=== PATIENT | male | born 1955 | race Caucasian/White ===

== ENCOUNTER 2023-12-19 18:04 | Emergency (ER) | payer OTHER, SELFPAY ==
[2023-12-19 18:07] VITALS: BP 109/68
[2023-12-19 18:33] LABS: % Basophils 0.4 % (0-2); % Eosinophils 1.1 % (0-6); % Immature Granulocytes 0.4 % (0-0.5); % Lymphocytes 25.3 % (20.5-51.1); % Monocytes 7.2 % (1.7-9.3); % Neutrophils 65.6 % (42.2-75.2); Absolute Eosinophils 0.1 10^3/uL (0-0.7); Absolute Lymphocytes 2.3 10^3/uL (1.2-3.4); Absolute Monocytes 0.6 10^3/uL (0.1-0.6); Absolute Neutrophils 5.8 10^3/uL (1.4-6.5); Hematocrit 31.8 % (39.0-52.0); Hemoglobin 10.5 g/dL (13.0-18.0); Mean Corpuscular Hgb 25.5 pg (27.0-31.0); Mean Corpuscular Volume 77.4 fL (80.0-94.0); Nucleated Red Blood Cells % 0 % (-); Platelet Count 355 10^3/uL (130-400); Red Blood Cell Count 4.11 10^6/uL (4.70-6.10); Red Cell Dist. Width 16.3 % (11.5-14.5); White Blood Cell Count 8.9 10^3/uL (4.8-10.8)
[2023-12-19 18:44] LABS: APTT 34.6 Sec (23.4-35.0)
[2023-12-19 18:48] LABS: ALT (SGPT) 13 U/L (0-50); AST (SGOT) 16 U/L (17-59); Albumin 3.6 g/dl (3.5-5.0); Alkaline Phosphatase 114 U/L (38-126); Blood Urea Nitrogen 21 mg/dl (9-20); Calcium 9.8 mg/dl (8.4-10.2); Carbon Dioxide 24 mmol/L (22-30); Chloride 100 mmol/L (98-107); Glucose 193 mg/dl (70-99); Potassium 4.9 mmol/L (3.5-5.1); Sodium 134 mmol/L (135-145); Total Bilirubin 0.4 mg/dl (0.2-1.3); Total Protein 6.6 g/dl (6.3-8.2); eGFR > 60.00
[2023-12-19 18:57] LABS: Troponin I < 0.012 ng/ml
== END 2023-12-19 23:40 ==
LOC: EMR 18:04
PROVIDERS: Student in an Organized Health Care Education/Training Program
DX: R07.89 Other chest pain (principal)
CPT/HCPCS: 99281; 71046; 80053; 84484; 85025; 85730; 93005

== ENCOUNTER → 2024-01-24 17:48 | Outpatient (REF) | payer OTHER, SELFPAY | LOC: RCS 17:48 | PROVIDERS: ATTENDING PHYSICIAN Nuclear Medicine Nuclear Cardiology; FAMILY PHYSICIAN Family Medicine | DX: I25.118 Atherosclerotic heart disease of native coronary artery with other forms of angina pectoris (principal); R06.02 Shortness of breath; I49.3 Ventricular premature depolarization; R00.2 Palpitations; R07.9 Chest pain, unspecified | CPT/HCPCS: 93306 ==

== ENCOUNTER → 2024-01-27 06:46 | Outpatient (REF) | payer OTHER, SELFPAY ==
[2024-01-27] MEDS: LEXISCAN 0.4 MG IV (09:05)
[2024-01-27] MEDS: AMINOPHYLLINE 75 MG IV (09:10)
== END ==
LOC: RCS 06:46
PROVIDERS: ATTENDING PHYSICIAN Nuclear Medicine Nuclear Cardiology; FAMILY PHYSICIAN Family Medicine
DX: I25.118 Atherosclerotic heart disease of native coronary artery with other forms of angina pectoris (principal); R06.02 Shortness of breath; I49.3 Ventricular premature depolarization; R00.2 Palpitations; R07.9 Chest pain, unspecified
CPT/HCPCS: 78452; 93017; A9500; J2785

== ENCOUNTER 2024-02-27 11:42 | Inpatient (IN) | payer OTHER, SELFPAY ==
[2024-02-27] VITALS (35 sets, daily range): BP systolic 82–137; BP diastolic 59–102; PULSE 2–159; BMI 27.0
[2024-02-27] MEDS: CARDIZEM 15 MG IV (09:25)
[2024-02-27 09:37] LABS: Venous Blood Gas B.E. -9.8 mmol/L (-4 to +4); Venous Blood Gas HCO3 18.3 mmol/L (22-27); Venous Blood Gas O2 Sat % 89.8 %; Venous Blood Gas pCO2 48 mmHg (35-48); Venous Blood Gas pO2 67 mmHg (30-50)
[2024-02-27 09:38] LABS: % Basophils 0.5 % (0-2); % Eosinophils 0.2 % (0-6); % Immature Granulocytes 0.6 % (0-0.5); % Lymphocytes 13.7 % (20.5-51.1); % Monocytes 3.7 % (1.7-9.3); % Neutrophils 81.3 % (42.2-75.2); Absolute Basophils 0.1 10^3/uL (0-0.2); Absolute Immature Granulocytes 0.1 10^3/uL (0-0.05); Absolute Lymphocytes 2.7 10^3/uL (1.2-3.4); Absolute Monocytes 0.7 10^3/uL (0.1-0.6); Absolute Neutrophils 15.7 10^3/uL (1.4-6.5); Hematocrit 37.3 % (39.0-52.0); Hemoglobin 12.1 g/dL (13.0-18.0); Mean Corp Hgb Conc. 32.4 g/dL (33.0-37.0); Mean Corpuscular Hgb 25.6 pg (27.0-31.0); Mean Corpuscular Volume 78.9 fL (80.0-94.0); Mean Platelet Volume 9.3 fL (7.4-10.4); Nucleated Red Blood Cells % 0 % (-); Platelet Count 417 10^3/uL (130-400); Red Blood Cell Count 4.73 10^6/uL (4.70-6.10); Red Cell Dist. Width 16.4 % (11.5-14.5); White Blood Cell Count 19.3 10^3/uL (4.8-10.8)
--- NOTE | 2024-02-27 09:43 | ED.GENMED ---
History of Present Illness
General
Chief Complaint: Breathing Problem
Time Seen by Provider: 02/27/24 09:14
History of Present Illness
History of Present Illness:
68-year-old male with history of hypertension, CAD status post stenting in 2000, history of lung cancer status post left lung removal presenting to the emergency department for episode of unresponsiveness. Patient arrives by medics. Medics report
when they arrived, patient was agonal. 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 When she came home from [employer] shift superintendent, patient was on the edge of his bed, trying to put his shoes on. He became increasingly short of breath and then became unresponsive.
She opened his mouth to give him some rescue breaths at that time. When medics arrived, they started him on CPAP. Per , denies any recent fever or cough. About 3 weeks ago, was started on isosorbide based patient had been having on and off
chest pain. Also recently had a stress test and echocardiogram. On arrival, patient admits to feeling shortness of breath, however denies any present chest pain. Patient limited historian given clinical condition.
Past History
Past History
ED Past Medical History: Cancer (Lung CA dx December 2019, tumor shrunk with chemo, radiation and immunotherapy, due for f/u CT scan 06/2021), HTN, Hypercholesterolemia, NIDDM and Other (Gi bleeding)
ED Past Surgical History: Cardiac (Angioplasty, Stents)
Social History
Tobacco: Smoker
Alcohol: Occasional
Personal:
Living: with family
Family History
Family History: Diabetes and Hypertension
Phy Exam
Physical Exam
Physical Exam:
General: Moderate respiratory distress
HEENT: protecting airway, on CPAP
Neck: appears supple
CV: Tachycardic, regular rhythm, no evidence of cyanosis
Resp: Increased work of breathing with rhonchorous breath sounds to the right lung field.
Abd: Soft and non-distended, no tenderness to palpation
Extremities: No deformities, no swelling, no erythema
Neuro: alert, no focal neurologic deficit
: deferred
Rectal: deferred
Psych: Normal affect
Skin: Intact
Scores
Heart Failure Risk
Heart Failure Risk Score: Yes
History of Stroke or TIA: No
History of intubation for respiratory distress: No
Heart rate on ED arrival >/= 110: Yes
SaO2 <90% on arrival on room air: Yes
HR >/=110 during 3min walk test (or too ill to perform test): Yes
ECG has acute ischemic changes: Yes
Urea >/=12mmol/L (BUN 33.6mg/dL): No
Serum CO2>/=35mmol/L: Yes
Troponin I or T elevated to SD Level (0.4mg/dL): Yes
NT-proBNP >/=5,000ng/L (5,000pg/ml): No
HF Risk Score: 9
Admission Status: VERY HIGH RISK 89% Consider admission to hospital
Course
Orders/Labs/Results
Orders:
Orders
02/27/24 09:10
Portable Chest Xray [CR Chest Portable - 1 View] Stat
Comment:
Reason For Exam: sob
Reason Study Needs to be Portable: Unable to Transport
02/27/24 09:12
Electrocardiogram (*1) Urgent
Reason for Study: Other
Other Reason for Exam: Respiratory Distress
Cardiac Monitoring- Treatment ONCE
EKG- Treatment ONCE
IV Insert/Care/Rem.- Treatment PRN
O2 Therapy [RESP] Urgent
Titrate/Wean O2 to maintain O2 sat greater than (%): 93
Special Instructions: TO MAINTAIN CONTINUOUS O2 SATS >/= 93%
Pulse Ox/cont/shift [RESP] Urgent
Quantity: 1
Special Instructions: continuous pulse ox
02/27/24 09:20
Complete Blood Count/With Diff Urgent
Comprehensive Metabolic Panel Urgent
Glycohemoglobin (HgbA1c) Urgent
NT-proBNP Urgent
Troponin I Urgent
Venous Blood Gas Urgent
%Oxygen/Room Air: bipap 12/5
02/27/24 09:22
Diltiazem HCl [Cardizem] 15 mg IV NOW STA
02/27/24 09:32
CT Chest Pe Study Urgent
Comment:
Reason For Exam: hypoxic, tachy
02/27/24 09:33
EKG [Electrocardiogram (*1)] Urgent
Reason for Study: Tachycardia
02/27/24 09:34
EKG- Treatment ONCE
02/27/24 09:46
Lactic Acid Q4H
Comment: CANCEL 2nd LACTIC ACID IF 1st LACTIC ACID IS LESS THAN 2
Blood Culture Urgent
ADEOLA Source: Blood/Venous
Specimen Description:
02/27/24 09:47
Furosemide [Lasix] 40 mg IV ONCE ONE
Nitroglycerin Sublingual [Nitrostat (Sublingual)] 0.4 mg SL [id number] PRN
02/27/24 09:48
Nitroglycerin Sublingual [Nitrostat (Sublingual)] 0.4 mg .ROUTE .STK-MED ONE
02/27/24 10:15
Reg Insulin 100 Units/100 ml [Novolin R Insulin Infusion] 100 units in 100 ml IV ORDERED RATE
02/27/24 10:16
Cefepime HCl [Maxipime] 2,000 mg IV NOW STA
02/27/24 10:18
Acetaminophen [Tylenol/Feverall] 650 mg .ROUTE .STK-MED ONE
02/27/24 10:19
Acetaminophen [Tylenol/Feverall] 650 mg RECTAL NOW STA
02/27/24 10:25
COVID-19 Antigen Urgent
Source: Nasal Swab
Urinalysis Reflex To Culture Urgent
Date Specimen was Collected: 02/27/24
Time Specimen was Collected: 10:21
Urine Microscopic Reflex Cult Urgent
Legionella Urinary Antigen Urgent
ADEOLA Source: U
Specimen Description:
Strep pneumoniae Antigen Urgent
ADEOLA Source: U
Specimen Description:
Comment: ADDED FROM PENDING
02/27/24 10:59
Behavioral Health Director Consult Routine
Consulting Provider: Ginna Hendricks
Was physician already notified: Yes
Reason for consult: covid, respiratory distress, sepsis
02/27/24 11:20
Admit/Transfer Patient As Directed
Co-Sign Provider:
Level of Care: Inpatient admission
Assign to:: ICU
Physician / Group: rosmery marcus
Diagnosis: respiratory failure, covid, pulm edema
Reason for Hospitalization: respiratory failure, covid, pulm edema
Expected length of stay greater than two midnights?: Yes
ELOS- Estimated Length of Stay in days: 7
I certify the patient meets the requirements for IP care: Yes
PRN Pain Medication Management As Directed
May give lesser potent ordered pain med per pt: Yes
preference::
Protocol:: Medication orders for pain may be administered in a
manner that supports deferring to patient preference
when the pt is:
- Requesting an ordered lesser potent pain medication.
Least to most potent pain medications are defined
as: acetaminophen < NSAID < tramadol < opioids
(morphine, oxycodone, hydromorphone).
- Requesting a lesser dose of the same medication IF
ORDERED.
- Requesting a less intrusive route of administration
if both routes are prescribed by the provider (PO <
IV).
02/27/24 11:24
Code Status As Directed
Resuscitation Status: Full Code
02/27/24 11:46
Dexamethasone Sod Phosphate [Decadron] 6 mg IV NOW STA
02/27/24 11:50
B-Hydroxybutyrate Urgent
02/27/24 12:28
Acetaminophen [Tylenol/Feverall] 650 mg RECTAL Q4HPRN PRN
Acetaminophen [Tylenol] 650 mg PO Q4HPRN PRN
Albuterol [ProAIR HFA INHALER] 2 puff INH R Q4HPRN PRN
Albuterol [ProAIR HFA INHALER] 6 puff INH R QID
Dextrose 50%-Water [Dextrose 50% Syringe] 12.5 grams IV [id number] PRN
Glucagon [GlucaGen] 1 mg IM PRN PRN
Insulin Aspart Corrective Mod [Novolog Flexpen-Moderate Resistance] See Protocol SC AC
Ondansetron Injectable [Zofran] 4 mg IV Q6HPRN PRN
02/27/24 12:28
Add On- LAB Routine
Tests Added?: HgbA1C to today's lab
CARDIOLOGY CONSULT Routine
Consulting Provider: Toya Butler
Was physician already notified: Yes
Respiratory Culture/Gram Stain Urgent
ADEOLA Source: Sputum
Specimen Description:
Activity As Directed
Activity Level: Out of Bed-Early Mobility
Bedside Glucose Monitoring As Directed
Frequency: Q1H
Intake/ Output As Directed
Frequency: Per unit guidelines
Notify MD As Directed
Notify physician if: Nurse to contact provider when glucose reaches 250 to obtain orders for D5 0.45 NaCl
Vital Signs As Directed
Frequency: Per unit guidelines
Weight As Directed
Frequency: Once
Comment: on admission
Pt Eval And Treat Routine
Activity Level: Out of Bed-Early Mobility
DX Deep Vein Thrombosis Video Routine
02/27/24 13:00
Metoprolol [Lopressor] 75 mg PO BID
02/27/24 14:36
Basic Metabolic Panel Q2
Lactic Acid Q4H
Comment: CANCEL 2nd LACTIC ACID IF 1st LACTIC ACID IS LESS THAN 2
Blood Culture Urgent
ADEOLA Source: Blood/Venous
Specimen Description:
02/27/24 17:48
Basic Metabolic Panel Q2
02/27/24 18:00
Aspirin Low Dose EC [Aspir Low (Enteric Coated)] 81 mg PO QPM
Cefepime HCl [Maxipime] 1,000 mg IV Q8H
Enoxaparin Sodium [Lovenox] 40 mg SC QPM
02/27/24 20:00
Guaifenesin [Mucinex] 600 mg PO Q12
02/28/24 06:11
Complete Blood Count/With Diff IN AM
02/28/24 08:00
Pantoprazole [Protonix] 40 mg PO DAILY
Abnormal Lab Results
02/27/24 02/27/24 02/27/24
09:20 09:46 10:25
WBC 19.3 H 10^3/uL
(4.8-10.8)
Hgb 12.1 L g/dL
(13.0-18.0)
Hct 37.3 L %
(39.0-52.0)
MCV 78.9 L fL
(80.0-94.0)
MCH 25.6 L pg
(27.0-31.0)
MCHC 32.4 L g/dL
(33.0-37.0)
RDW 16.4 H %
(11.5-14.5)
Plt Count 417 H 10^3/uL
(130-400)
Abs Immat Gran (auto) 0.1 H 10^3/uL
(0-0.05)
Absolute Neuts (auto) 15.7 H 10^3/uL
(1.4-6.5)
Absolute Monos (auto) 0.7 H 10^3/uL
(0.1-0.6)
Immature Gran % 0.6 H %
(0-0.5)
Neutrophils % 81.3 H %
(42.2-75.2)
Lymphocytes % 13.7 L %
(20.5-51.1)
VBG pH 7.19 L*
(7.32-7.43)
VBG pO2 67 H mmHg
(30-50)
VBG HCO3 18.3 L mmol/L
(22-27)
Sodium 134 L mmol/L
(135-145)
Carbon Dioxide 20 L mmol/L
(22-30)
Glucose 428 H mg/dl
(70-99)
Hemoglobin A1c 7.2 H %
(4.0-5.6)
Lactic Acid 4.1 H* mmol/L
(0.7-2.0)
Alkaline Phosphatase 140 H U/L
(38-126)
Troponin I 0.039 H* ng/ml
Urine Ketones 1+ A
(Negative)
Ur Occult Blood Reflex Trace A
(Negative)
Urine RBC 3-6 A /HPF
(0-2)
Urine Glucose 1+ A
(Negative)
Urine Albumin (Reflex) 1+ A
(Neg - Trace)
SARS-CoV-2 Antigen Positive A
(Negative)
POC Glucose
24 02/27/24
10:31 11:38
WBC
Hgb
Hct
MCV
MCH
MCHC
RDW
Plt Count
Abs Immat Gran (auto)
Absolute Neuts (auto)
Absolute Monos (auto)
Immature Gran %
Neutrophils %
Lymphocytes %
VBG pH
VBG pO2
VBG HCO3
Sodium
Carbon Dioxide
Glucose
Hemoglobin A1c
Lactic Acid
Alkaline Phosphatase
Troponin I
Urine Ketones
Ur Occult Blood Reflex
Urine RBC
Urine Glucose
Urine Albumin (Reflex)
SARS-CoV-2 Antigen
POC Glucose 420 H mg/dl 411 H mg/dl
(70-99) (70-99)
02/27/24 09:20
02/27/24 09:20
Vital Signs
Initial and Last Documented VS:
Initial Vital Signs
Pulse Resp BP Pulse Ox
160 40 137/75 96
02/27/24 09:10 02/27/24 09:10 02/27/24 09:10 02/27/24 09:10
Last Documented Vital Signs
Temp Pulse Resp BP Pulse Ox
98.2 F 91 21 99/63 97
02/28/24 11:45 02/28/24 15:00 02/28/24 15:00 02/28/24 15:00 02/28/24 15:00
MDM/Problems Addressed
MDM/Problems Addressed:
68-year-old male with history of hypertension, hyperlipidemia, CAD status post stenting, history of lung cancer status post left lung removal presenting for unresponsive episode and respiratory distress. Vital signs on arrival significant for
tachycardia, arrives on CPAP secondary to prehospital hypoxia.
On exam, patient in moderate to severe respiratory distress with increased work of breathing. Patient initially with decreased fuzziness, however became more responsive upon arrival, particularly with at bedside. Patient able to answer
questions, denies chest pain. Rhonchorous breath sounds to the right lung field. Concern for flash pulmonary edema versus infectious pathology such as pneumonia. In the setting of tachycardia and hypoxia, PE is also a consideration. Patient
however at this time is too unstable for CT of the chest. Respiratory at bedside upon patient's arrival, transition to BiPAP. Did have conversation with patient and , patient full code at this time. Will maintain him up at this time, however
we will proceed to intubation if necessary if clinical picture does not improve.
09:50 - Diltiazem administered for tachycardia, slightly improved, remains sinus. Initial ST depressions have improved with rate improvement. Without concern for SD. However, on review of EMR, patient recently had nuclear stress test completed on
01/26, which did show anterior, apical, inferior defect. Patient with known coronary artery disease. Chest x-ray consistent with moderate acute interstitial and alveolar cardiogenic pulmonary edema. At this time concern for flash pulmonary edema.
Will maintain on BiPAP, administer sublingual nitro given labile blood pressure, as well as Lasix. Labs thus far significant for leukocytosis. Blood culture and lactic acid ordered. However, denies any cough or recent fever, or additional
infectious symptoms
10:00-patient with a metabolic acidosis. Labs significant for hyperglycemia with an anion gap. At this time concern for concomitant DKA. Holding IV fluids given pulmonary edema. Will start insulin drip. Patient does have elevated troponin,
suspected secondary to ischemic demand from presenting tachycardia. Patient will require ICU admission. Will discuss with hospitalist.
10:15 -nurse obtain rectal temperature, febrile. In the setting of leukocytosis, elevated lactic acid, fever, will start broad-spectrum antibiotics. Again holding IV fluids given pulmonary edema and respiratory status. Will give rectal Tylenol
*EKG
Interpreted by ED Provider?: Yes
EKG Intrepretation Date: 02/27/24
EKG Intrepretation Time: 09:46
Interpretation: abnormal
Comparison EKG: changes noted
Heart Rate: 160
Rate: tachycardiac
Rhythm: sinus
Pax: left axis deviation
Interval: normal interval
Ischemia: other (ST depressions laterally with minimal ST elevation anteriorly, suspected right dependent)
*Critical Care Note
Total Time (30-74mins, 75-104mins- exclusive of procedures): 80
comment:
The high probability of a clinically significant, sudden or life threatening deterioration of the cardiopulmonary system(s) required my full and direct attention, intervention and personal management. The aggregate critical care time was 60 minutes.
This time is in addition to time spent performing reported procedures but includes the following:
[x] Data Review and interpretation
[x] Patient assessment and monitoring of vital signs
[x] Documentation
[x] Medication orders and management
ED Attending Note
-
Portions of this chart may have been created with voice recognition software.� Occasional wrong word or��sound alike� substitutions may have occurred due to the inherent limitations of voice recognition software.
Discharge Plan
Departure
Patient Disposition: Admit
Date of Disposition: 02/27/24
Time of Disposition: 10:31
Presentation/result/management discussed w/ accepting MD/DO: Hospitalist
Patient with high blood pressure during this ER visit?: No
Condition: Critical
Discharge Problem:
Respiratory failure with hypoxia, DKA (diabetic ketoacidosis), Sepsis, Pulmonary edema
Interventions
Interventions:
*Risk Screen - Suicide Last Done: 02/27/24 09:35
*General Assessment Last Done: 02/27/24 12:39
*Neglect/Abuse Screening Last Done: 02/27/24 09:35
ED- Fall Risk Assessment Last Done: 02/27/24 12:39
*ED COVID-19 Vaccine History Last Done: 02/27/24 12:39
*Nursing Disposition Last Done: 02/27/24 12:39
ED- Cardiac Assessment Last Done: 02/27/24 09:19
ED- Pulmonary Assessment Last Done: 02/27/24 09:20
Discharge Date and Time
Discharge Date/Time: 02/27/24 12:41
[2024-02-27 09:44] LABS: Venous Blood Gas pH 7.19 (7.32-7.43)
[2024-02-27 09:46] LABS: ALT (SGPT) 17 U/L (0-50); AST (SGOT) 22 U/L (17-59); Alkaline Phosphatase 140 U/L (38-126); Blood Urea Nitrogen 18 mg/dl (9-20); Calcium 9.5 mg/dl (8.4-10.2); Carbon Dioxide 20 mmol/L (22-30); Chloride 100 mmol/L (98-107); Glucose 428 mg/dl (70-99); Potassium 4.7 mmol/L (3.5-5.1); Sodium 134 mmol/L (135-145); Total Bilirubin 0.5 mg/dl (0.2-1.3); Total Protein 6.7 g/dl (6.3-8.2); eGFR > 60.00
[2024-02-27] MEDS: NITROSTAT (SUBLINGUAL) 0.4 MG SL ×2 (09:49→10:02)
[2024-02-27] MEDS: LASIX 40 MG IV (09:57)
[2024-02-27 10:01] LABS: NT-proBNP 1620 pg/ml; Troponin I 0.039 ng/ml
[2024-02-27 10:11] LABS: Lactic Acid 4.1 mmol/L (0.7-2.0)
[2024-02-27] MEDS: TYLENOL/FEVERALL 650 MG RECTAL (10:19)
[2024-02-27 10:33] LABS: Glucose - Point of Care 420 mg/dl (70-99)
[2024-02-27] MEDS: NOVOLIN R INSULIN INFUSION 100 IV (10:33)
[2024-02-27] MEDS: MAXIPIME 2000 MG IV (10:41)
[2024-02-27 10:43] LABS: COVID-19 Antigen Positive (Negative); Urine Albumin 1+ (Neg - Trace); Urine Bilirubin Negative (Negative); Urine Character Clear (Clear); Urine Color Yellow; Urine Glucose 1+ (Negative); Urine Ketone 1+ (Negative); Urine Leukocyte Negative (Negative); Urine Nitrite Negative (Negative); Urine Occult Blood Trace (Negative); Urine Specific Gravity 1.025 (<1.030); Urine Urobilinogen Negative (Neg - 1+)
--- NOTE | 2024-02-27 11:00 | HPS.HSE ---
Family Physician
-
Family Physician: Eduardo Guzman
Chief Complaint
-
Shortness of breath, unresponsiveness
History of Present Illness
68-year-old male with a past medical history of lung cancer status post left pneumonectomy, CAD, HTN, HL, PVD, COPD, and DM2 presents with acute onset of shortness of breath with unresponsiveness this morning. Patient's came home from work,
and found him short of breath and unresponsive. She opened his mouth, and gave him rescue breaths. Medics found him agonal breathing, and placed him on CPAP. denies any sick contacts. She denies him having nausea, vomiting, or diarrhea.
She does report that he is weak. Patient was found to be COVID-positive, febrile, and tachycardic. He has had all his COVID vaccinations.
Medical History
Past Medical History
Past Medical History: Reports Other
Additional Past Medical History:
Coronary artery disease PCI 2000 in [place]
PVD
Hypertension
Hyperlipidemia
COPD
Lung cancer s/p Left pneumonectomy 2021, chemo/XRT/Immunotherapy ([place])
Type 2 diabetes
GERD
GIB
Past Surgical History: Reports Other
Additional Past Surgical History:
Left pneumonectomy
Social History
Tobacco: Former Smoker
Alcohol: Occasional
Drug: None
Personal:
Living: With Family
Family History
Family History: Not pertinent
Allergies / Home Medications
Allergies reflects when Allergies were last updated in [facility].
Home Medications with original date entered in [facility]
Allergy/Medication List:
Allergies
Allergy/AdvReac Type Severity Reaction Status Date / Time
atorvastatin Allergy Rash Verified 12/19/23 18:07
Home Medications Table - record
�Medication �Instructions �Recorded �Confirmed
fluvastatin 80 mg tablet,extended 80 mg PO DAILY High Cholesterol 06/17/13 02/27/24
release 24 hr (Lescol XL)
aspirin 81 mg tablet,delayed 81 mg PO QPM Blood Clot 02/07/23 02/27/24
release Prevention/Tx
cholecalciferol (vitamin D3) 25 25 mcg PO QPM Supplement 02/07/23 02/27/24
mcg (1,000 unit) capsule (Vitamin
D3)
glimepiride 4 mg tablet 4 mg PO BID Diabetes 02/07/23 02/27/24
lisinopril 10 mg tablet 5 mg PO DAILY Blood Pressure 02/07/23 02/27/24
metoprolol tartrate 75 mg tablet 75 mg PO BID Heart 02/07/23 02/27/24
Disease/Condition
silodosin 8 mg capsule 8 mg PO DAILY Urinary Issue 02/07/23 02/27/24
sitagliptin phosphate 100 mg 100 mg PO DAILY Diabetes 02/07/23 02/27/24
tablet (Januvia)
isosorbide mononitrate 30 mg 30 mg PO DAILY Heart 02/27/24 02/27/24
tablet,extended release 24 hr Disease/Condition
metformin 1,000 mg tablet 1,000 mg PO BID Diabetes 02/27/24 02/27/24
pantoprazole 40 mg tablet,delayed 40 mg PO DAILY Gastrointestinal 02/27/24 02/27/24
release (Protonix) Issue
Review of Systems
-
Unable to obtain full review of systems at this time due to: Acuity
A 12 point ROS was completed and negative except as noted: No
Physical Exam
Vital Signs
Vital Signs
Temp Pulse Resp BP Pulse Ox
102.8 F H 148 32 126/70 99
02/27/24 10:16 02/27/24 10:00 02/27/24 10:00 02/27/24 10:07 02/27/24 09:57
Physical Exam
General: Respiratory Distress
HEENT: NormoCephalic, Anicteric and Moist mucous membranes
Respiratory: Rhonchi
Cardiac: Tachycardia
GI: Soft, Non Tender, Non Distended and Normal Bowel Sounds
Musculoskeletal: No Clubbing, Edema, Left Lower Extremity and Edema, Right Lower Extremity
Neuro: Other (Lethargic, somnolent)
Laboratory Results
-
02/27/24 09:20
02/27/24 09:20
Laboratory Results
Lactic Acid 4.1 mmol/L (0.7-2.0) H* 02/27/24 09:46
Total Bilirubin 0.5 mg/dl (0.2-1.3) 02/27/24 09:20
AST 22 U/L (17-59) 02/27/24 09:20
ALT 17 U/L (0-50) 02/27/24 09:20
Alkaline Phosphatase 140 U/L (38-126) H 02/27/24 09:20
Troponin I 0.039 ng/ml H* 02/27/24 09:20
Impression/Plan
-
HPI: 68-year-old male with a past medical history of lung cancer status post left pneumonectomy, CAD, HTN, HL, PVD, COPD, and DM2 presents with acute onset of shortness of breath with unresponsiveness this morning. Patient's came home from
work, and found him short of breath and unresponsive. She opened his mouth, and gave him rescue breaths. Medics found him agonal breathing, and placed him on CPAP. denies any sick contacts. She denies him having nausea, vomiting, or
diarrhea. She does report that he is weak. Patient was found to be COVID-positive, febrile, and tachycardic. He has had all his COVID vaccinations.
#Sepsis
#Acute coronavirus pneumonia
#Concern for bacterial pneumonia
Admit to ICU, continue vancomycin and cefepime
Start dexamethasone day 1, bronchodilators
Consult ID for remdesivir
#Flash pulmonary edema
Status post Lasix 40 mg IV in the ED
Consult cardiology, check echo
#Acute hypoxic respiratory failure
Due to the above, wean oxygen as tolerated
#Diabetic ketoacidosis
Consult laboratory secretary
Insulin drip, Accu-Cheks every hour's, BMP
#Sinus tachycardia
Status post Cardizem in the ED
Continue oral metoprolol, treat underlying conditions as above
#Hypotension
Hold Imdur, lisinopril
#Type 2 diabetes
Hold glimepiride, Januvia, metformin
#Gastroesophageal reflux disease
Continue PPI
#Hyponatremia
Mild, monitor
DVT prophylaxis�subcu Lovenox
Full code
Updated at bedside 02/26
Total time spent to see the patient on the floor, examine the patient, review data and lab results, discuss treatment plan with patient, nursing staff around 78 minutes.
[2024-02-27 11:50] LABS: Glucose - Point of Care 411 mg/dl (70-99)
[2024-02-27 11:51] LABS: Urine Hyaline Cast >15 /LPF (0-2); Urine Mucus Many
[2024-02-27] MEDS: DECADRON 6 MG IV (11:56)
--- NOTE | 2024-02-27 12:01 | CON.CAR ---
Addendum entered and electronically signed by Toya Butler MD 02/27/24 16:16:
I saw and examined the patient.
The Pss Delivery Professional's note was reviewed and I agree with the note.
Comment: Patient is critically ill at the current time. He presents with weakness and acute respiratory failure in the setting of being COVID-positive. He is febrile to 102.8. He has both lactic acidosis and possibly early DKA. White blood count
is elevated. He has prior history of lung cancer status postpneumonectomy and chemotherapy 2021. Currently he is conversant. His is at the bedside and answers many questions. She tells me he was very weak and hypoxic today when she got home
from work. CT imaging interpreted as moderate acute interstitial edema in the right lung. EKG now tachycardic but improved.
Most recent cardiac testing noted with Lexiscan nuclear stress test being abnormal 01/27/2024 with large size moderate partially reversible anterior, apical and inferior defect. This suggested coronary disease. After discussion with patient and his
patient had requested conservative management.
Echocardiogram 01/24/2024 with normal LV function and no significant valve disease.
He is currently hypotensive.
Plan:
-Mild troponin elevation. Trend troponins and follow EKG. No chest pain noted.
-Hypotension noted volume resuscitate and follow blood pressure
-Treat COVID/COVID-pneumonia(Remdesivir and antibiotics/steroids); managed by infectious disease, legal administrator and primary service
-If no improvement or significant rise in troponin consider limited echo. Given recent abnormal stress test.
-Continue beta-jeffery and aspirin. Beta-jeffery has helped sinus tachycardia as has volume resuscitation.
-As an outpatient he is on fluvastatin (rash with atorvastatin). Will check outpatient record and perhaps start Crestor 20 g daily.
-Treat early DKA
-Continue supportive pulmonary care
-Cancer history noted
Original Note:
Consultation
Consultation Request
Date/Time Consultation Requested: 02/27/2024
Date/Time Consultation Performed: 02/27/2024
Requesting Provider: Dr. Alvares
Performing Provider: Maria D Matute PA-C for Dr. Toya Butler
Reason for Consultation: Shortness of breath, pulmonary edema
Medical History
-
History of Present Illness:
Patient is a 68-year-old South African speaking male with past medical history significant for coronary artery disease with remote PCI in 2000 in [place], nonobstructive PVD, hypertension, hyperlipidemia, type 2 diabetes, former tobacco abuse with COPD
and lung cancer status past left pneumonectomy 2021 with chemo/immunotherapy and radiation who presents 02/27/2024 to emergency department via EMS with an episode of shortness of breath followed by unresponsiveness. Episode was witnessed by his
. Patient was placed on BiPAP by EMS. On presentation to emergency department he was noted to have a fever of 102.8. White count 19.3, lactic acid 4.1. Chest x-ray showed acute interstitial pulmonary edema in the right lung. Chest CTA
confirmed moderate interstitial pulmonary edema with small right pleural effusion, small pericardial effusion and severe calcified atherosclerotic plaque in coronary arteries and thoracic aorta. There was mild mediastinal and right hilar
lymphadenopathy. proBNP 1620. Patient was provided 40 mg IV Lasix. Initial EKG showing tachycardia and was provided IV diltiazem bolus. Repeat EKG sinus tachycardia. Initial troponin 0.039. proBNP 1620. Patient COVID-positive. Started on
empiric IV antibiotics and IV steroids. Patient also noted to have metabolic acidosis with hyperglycemia and anion gap concerning for possible DKA.
Of note patient was seen by Dr. Ornelas in outpatient cardiology office in December 2023 with complaints of intermittent chest pain. He underwent outpatient echocardiogram in January 2024 which showed preserved ejection fraction and no significant valvular
disease. He also had a Lexiscan nuclear stress test which showed moderate partial reversible anterior, apical and inferior defect suggestive of coronary artery disease. There was ongoing discussion with patient regarding proceeding with cardiac
catheterization however patient decided against undergoing any procedure and Imdur 30 mg was added.
History is provided by patient's as patient is primarily South African speaking and has some altered mental status/lethargy.
PMH:
Coronary artery disease PCI 2000 in [place]
PVD
Hypertension
Hyperlipidemia
COPD
Lung cancer s/p Left pneumonectomy 2021, chemo/XRT/Immunotherapy ([place])
Type 2 diabetes
Past Medical History
Past Medical History: Other (See HPI)
Past Surgical History: Cardiac (Remote PCI in 2000 in [place]) and Other (Lung cancer status post pneumonectomy 2021)
Social History
Tobacco: Former Smoker
Alcohol: Occasional
Drug: None
Personal:
Living: With Family
Family History
Family History: Diabetes and Hypertension
Allergies / Home Medications
Allergy/AdvReac Type Severity Reaction Status Date / Time
atorvastatin Allergy Rash Verified 12/19/23 18:07
�Medication �Instructions �Recorded �Confirmed �Type
fluvastatin 80 mg tablet,extended 80 mg PO DAILY 06/17/13 02/27/24 History
release 24 hr (Lescol XL)
metformin 1,000 mg tablet 1,000 mg PO BID ##0 06/19/13 02/27/24 Rx
aspirin 81 mg tablet,delayed 81 mg PO QPM 02/07/23 02/27/24 History
release
cholecalciferol (vitamin D3) 25 25 mcg PO QPM 02/07/23 02/27/24 History
mcg (1,000 unit) capsule (Vitamin
D3)
glimepiride 4 mg tablet 4 mg PO BID 02/07/23 02/27/24 History
lisinopril 10 mg tablet 5 mg PO DAILY 02/07/23 02/27/24 History
metoprolol tartrate 75 mg tablet 75 mg PO BID 02/07/23 02/27/24 History
silodosin 8 mg capsule 8 mg PO DAILY 02/07/23 02/27/24 History
sitagliptin phosphate 100 mg 100 mg PO DAILY 02/07/23 02/27/24 History
tablet (Januvia)
isosorbide mononitrate 30 mg 30 mg PO DAILY 02/27/24 02/27/24 History
tablet,extended release 24 hr
pantoprazole 40 mg tablet,delayed 40 mg PO DAILY 02/27/24 02/27/24 History
release (Protonix)
Review of Systems
-
History Source: Family, Transfer Record and Coordinating Provider
Physical Exam
Vital Signs
Temp Pulse Resp BP Pulse Ox
102.8 F H 148 32 126/70 99
02/27/24 10:16 02/27/24 10:00 02/27/24 10:00 02/27/24 10:07 02/27/24 09:57
GEN:Lethargic, wearing high flow oxygen
HEENT: supple, anicteric, mmm
LUNGS: Coarse BS/Rhonchi noted anteriorly on right; wearing high flow oxygen
CV: Reg, tachycardic, S1/S2, no murmur
ABD: soft, BS+, NT/ND
EXT: No edema, clubbing or cyanosis
NEURO: lethargic, opens eyes on command
SKIN: No rash, warm, dry
Lab Results
02/27/24 09:20
Troponin I 0.039 ng/ml H* 02/27/24 09:20
Qyk-C-Lhapgvsoilu Pept 1620 pg/ml 02/27/24 09:20
Impression / Plan
-
PCP: Eduardo Fofana
Hand Sewer: Jayson Ornelas
Impression:
Presented 02/27/2024 with acute shortness of breath followed by period of unresponsiveness
Acute hypoxic respiratory failure secondary to COVID-19
Febrile
Leukocytosis
Flash pulmonary edema
Tachycardia
Acute heart failure with preserved ejection fraction, proBNP 1620
Metabolic acidosis with anion gap
DKA
Coronary artery disease PCI 2000 in [place]
PVD
Hypertension
Hyperlipidemia
COPD
Lung cancer s/p Left pneumonectomy 2021, chemo/XRT/Immunotherapy ([place]/[facility])
Type 2 diabetes
ECHO 01/24/2024: EF 55 to 60%. No significant valvular disease
Echo August 2021: EF 60% with no significant valvular disease
Lexiscan nuclear stress test 01/27/2024: Large in size, moderate in severity partially reversible anterior, apical and inferior defect. Defect does not get better with proning suggesting coronary artery disease. EF 50%
Lexiscan stress test August 2021: Normal perfusion with a EF 68%
Plan:
-Presented 02/27/2024 with acute shortness of breath followed by period of unresponsiveness requiring BiPAP by EMS noted to have flash pulmonary edema on chest x-ray/CT of chest
-COVID-19 positive 02/27/2024. Started on IV steroids. Pulmonary consulted
-Leukocytosis and fever Tmax 102.8 in ED. Continue IV antibiotics with Vanco and cefepime
-Continue IV diuresis with Lasix. Given 40 mg in emergency department monitor and assess response. Patient not on diuretic as outpatient.
-Concern for DKA with metabolic acidosis, anion gap and hyperglycemia with blood sugar greater than 400. Management per primary service/legal administrator - on insulin gtt
-Abnormal troponin, initial 0.039. Continue to monitor and trend to peak.
-Tachycardic likely due to present illnesses noted above. Continue to monitor and trend heart rates for now.
-Known coronary artery disease with prior remote PCI in [place] in 2000. Patient recently had complained of intermittent chest pain as outpatient and underwent a Lexiscan nuclear stress test which was abnormal with moderate partial reversible defect
in anterior, apical and inferior defect suggestive of coronary artery disease. Patient declined intervention and opted for medical management with Imdur. CTA of chest demonstrates severe calcified atherosclerotic plaque in coronary arteries. May
need to consider further ischemic work-up once patient is more stable
-Continue ASA. Eventual resumption of Imdur, beta-jeffery, YAO-I and statin once more stable
Discussed with , nursing at bedside
HPI 02/27/2024:
Patient is a 68-year-old [place] African speaking male with past medical history significant for coronary artery disease with remote PCI in 2000 in [place], nonobstructive PVD, hypertension, hyperlipidemia, type 2 diabetes, former tobacco abuse with COPD
and lung cancer status past left pneumonectomy 2021 with chemo/immunotherapy and radiation who presents 02/27/2024 to emergency department via EMS with an episode of shortness of breath followed by unresponsiveness. Episode was witnessed by his
. Patient was placed on BiPAP by EMS. On presentation to emergency department he was noted to have a fever of 102.8. White count 19.3, lactic acid 4.1. Chest x-ray showed acute interstitial pulmonary edema in the right lung. Chest CTA
confirmed moderate interstitial pulmonary edema with small right pleural effusion, small pericardial effusion and severe calcified atherosclerotic plaque in coronary arteries and thoracic aorta. There was mild mediastinal and right hilar
lymphadenopathy. proBNP 1620. Patient was provided 40 mg IV Lasix. Initial EKG showing tachycardia and was provided IV diltiazem bolus. Repeat EKG sinus tachycardia. Initial troponin 0.039. proBNP 1620. Patient COVID-positive. Started on
empiric IV antibiotics and IV steroids. Patient also noted to have metabolic acidosis with hyperglycemia and anion gap concerning for possible DKA.
Of note patient was seen by Dr. Ornelas in outpatient cardiology office in December 2023 with complaints of intermittent chest pain. He underwent outpatient echocardiogram in January 2024 which showed preserved ejection fraction and no significant valvular
disease. He also had a Lexiscan nuclear stress test which showed moderate partial reversible anterior, apical and inferior defect suggestive of coronary artery disease. There was ongoing discussion with patient regarding proceeding with cardiac
catheterization however patient decided against undergoing any procedure and Imdur 30 mg was added.
History is provided by patient's as patient is primarily South African speaking and has some altered mental status/lethargy.
Data Reviewed
-
EKG: Report Reviewed by me, Discussed with Physician, Discussed with Nurse and Discussed with Family
Radiology: Report Reviewed by me, Discussed with Physician, Discussed with Nurse and Discussed with Family
CT Scan: Report Reviewed by me, Discussed with Physician, Discussed with Nurse and Discussed with Family
Labs: Labs Reviewed by me, Discussed with Physician, Discussed with Nurse and Discussed with Family
Old Records: Reviewed
[2024-02-27 12:05] LABS: Urine White Cell 0-2 /HPF (0-5)
[2024-02-27 12:14] LABS: Glucose 389 mg/dl (70-99)
[2024-02-27 12:21] LABS: B-Hydroxybutyrate 2.47 mmol/L (0.02-0.27)
--- NOTE | 2024-02-27 12:59 | CON.INTV ---
Consultation
Consultation Request
Date/Time Consultation Requested: 02/27/24
Date/Time Consultation Performed: 02/27/24
Performing Provider: Ruthie
Reason for Consultation: ICU
Medical History
-
History of Present Illness:
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
progressive shortness of breath. On arrival he was notably febrile, COVID-positive. had called 911 after patient appeared to be apneic, she gave gywdm-ci-wvmvy resuscitation at home. She notes that his O2 dropped to below 50% prior to EMS
arrival. He is now currently on high flow nasal cannula.
He has been following with [facility] for his history of lung cancer. His initial lung mass was demonstrating progressive enlargement. On 08/06/2021 he underwent bronchoscopy with EBUS indicating path consistent with squamous cell carcinoma, 4R and
right hilar lymph node were negative for local metastases. He had been on durvalumab since 06/06/2020.
Initial plan was to do local resection at left lower lobe, but according to his mass abutted against aorta and required massive dissection which ultimately resulted in complete pneumonectomy. He had been doing well supposedly following his
surgery and surveillance scans were stable. He did not require oxygen postoperatively.
She does note he has generally sedentary lifestyle, is not very active since his surgery. He had not received any further treatment postop as well.
On arrival to ER, he has metabolic acidosis with elevated lactate, hyperglycemia for which she is placed on insulin drip.
He is admitted to ICU.
Past Medical History
Past Medical History: Other (see list below)
Social History
Tobacco: Former Smoker
Alcohol: None
Drug: None
Family History
Family History: Reviewed & Not Pertinent
Allergies / Home Medications
Allergies
Allergy/AdvReac Type Severity Reaction Status Date / Time
atorvastatin Allergy Rash Verified 12/19/23 18:07
Home Medications
�Medication �Instructions �Recorded �Confirmed �Last Taken �Type
fluvastatin 80 mg tablet,extended 80 mg PO DAILY 06/17/13 02/27/24 02/26/24 History
release 24 hr (Lescol XL)
metformin 1,000 mg tablet 1,000 mg PO BID ##0 06/19/13 02/27/24 02/26/24 Rx
aspirin 81 mg tablet,delayed 81 mg PO QPM 02/07/23 02/27/24 02/26/24 History
release
cholecalciferol (vitamin D3) 25 25 mcg PO QPM 02/07/23 02/27/24 02/26/24 History
mcg (1,000 unit) capsule (Vitamin
D3)
glimepiride 4 mg tablet 4 mg PO BID 02/07/23 02/27/24 02/26/24 History
lisinopril 10 mg tablet 5 mg PO DAILY 02/07/23 02/27/24 02/26/24 History
metoprolol tartrate 75 mg tablet 75 mg PO BID 02/07/23 02/27/24 02/26/24 History
silodosin 8 mg capsule 8 mg PO DAILY 02/07/23 02/27/24 02/26/24 History
sitagliptin phosphate 100 mg 100 mg PO DAILY 02/07/23 02/27/24 02/26/24 History
tablet (Januvia)
isosorbide mononitrate 30 mg 30 mg PO DAILY 02/27/24 02/27/24 02/27/24 History
tablet,extended release 24 hr
pantoprazole 40 mg tablet,delayed 40 mg PO DAILY 02/27/24 02/27/24 02/26/24 History
release (Protonix)
Review of Systems
-
History Source: Patient
All other systems: Negative unless noted
Vitals / Labs / Diagnostic Testing
Vital Signs
Temp Pulse Resp BP Pulse Ox
97.7 F 123 20 115/63 99
02/27/24 12:52 02/27/24 12:00 02/27/24 12:00 02/27/24 12:00 02/27/24 12:52
Lab Data
02/27/24 09:20
Diagnostic Testing:
Physical Exam
-
HEENT: Normocephalic, Anicteric and Moist Mucous Membranes
Cardiovascular: S1/S2 and Regular Rhythm
Respiratory: Clear (R), Non-Labored Respirations and Other (absent on L)
GI: Soft, Non Distended and Non Tender
Neurology: Awake, Alert and Other (lethargic but arousable)
Skin: Warm and Dry
General: Comfortable and Other (NAD)
Assessment
-
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
progressive shortness of breath. On arrival he was notably febrile, COVID-positive. had called 911 after patient appeared to be apneic, she gave [id number] resuscitation at home. She notes that his O2 dropped to below 50% prior to EMS
arrival. He is now currently on high flow nasal cannula. On arrival to ER, he has metabolic acidosis with elevated lactate, hyperglycemia for which she is placed on insulin drip.
He is admitted to ICU.
Acute hypoxic respiratory failure, now on high flow nasal cannula
Suspected sepsis, bacterial versus viral
Acute COVID illness
Lactic acidosis
Metabolic acidosis, GAP 14
Hyperglycemia
Right pleural effusion
Conditions present PHOTOGRAPHER MOTION PICTURE
PVD
Hypercholesteremia
HTN
Diabetes type II
CAD s/p Angioplasty + stent
prior remote PCI in [place] in 2000
Squamous cell lung cancer s/p left pneumonectomy 2021 at [place]
IR biopsy at 2019
Diabetes type 2, controlled
Benign prostatic hyperplasia with nocturia
Plan
No current signs of metabolic encephalopathy or MS changes/following commands
Denies pain at this time.
Pain/sedation: PRN
RASS goals: 0
Hemodynamically stable, not requiring pressors.
Cardiac history reviewed--HLD, HTN, CAD
Severe disease noted on CT, following with Dr Ornelas
Prior ECHO reviewed indicating normal function
Resume home meds per team
Cards eval obtained
Monitor on telemetry
Oxygen needs: on HFNC, can wean to midflow as tolerated
AB.19/48/67/18
CXR/CT reviewed indicating R sided effusion, L atelectasis with shift
Prior history of lung disease: Squamous cell ca s/p complete L pneumonectomy at [facility]
He has been following with [facility] for his history of lung cancer. His initial lung mass was demonstrating progressive enlargement.
On 08/06/2021 he underwent bronchoscopy with EBUS indicating path consistent with squamous cell carcinoma, 4R and right hilar lymph node were negative for local metastases.
He had been on durvalumab since 06/06/2020.
Initial plan was to do local resection at left lower lobe, but according to his mass abutted against aorta and required massive dissection which ultimately resulted in complete pneumonectomy.
He had been doing well supposedly following his surgery and surveillance scans were stable. He did not require oxygen postoperatively.
She does note he has generally sedentary lifestyle, is not very active since his surgery. He had not received any further treatment postop as well.
NPO, resume diet when able
Textile Scrap Salvager recommendations
Aspiration precautions, HOB > 30 degrees
Speech therapy eval can be considered if at elevated risk
GI prophylaxis if indicated for mechanical ventilation >48 hours, prior history of GERD, stress ulcer formation in the critically ill
Creat at baseline, no history of renal disease
Void trials
Follow urine output, critical I/Os
Replete electrolytes as needed
Fever and increased WBC on presentation, suspect underlying infection bacterial vs viral
Started on empiric antibiotics
Cultures sent/pending
Blood pending
COVID positive--this could be a result in severe viral COVID illness in patient s/p chemo and 1 functional lung
Check procal to eval if there is superimposed bacterial illness
Follow fever trend, WBC count
Lactate elevated on admission, continue to trend until <2
CBC stable, no signs of bleeding or coagulopathy.
DVT prophylaxis as assessed based on risk, including mechanical SCDs
Can transfuse if indicated for Hb <7, plt < 10
INR WNL in past
No h/o hypothyroidism
H/o diabetes, poorly controlled
HbA1c 8.0 in 2021
Possible early DKA as AG is 14, insulin gtt started
Can likely transition quickly to SQ
We will follow
Diagnostic Data
Chest X-Ray: 02/27/24- 1. MODERATE ACUTE INTERSTITIAL and ALVEOLAR CARDIOGENIC PULMONARY EDEMA in the RIGHT LUNG.
2. Previous left pneumonectomy with associated right to left mediastinal shift.
3. Severe calcific atherosclerotic plaque in the thoracic aorta.
12/19/23- New diffuse white out of the left lung suggesting probable pleural fluid and atelectasis. Underlying mass not excluded. Associated mediastinal shift to the left.
CT Scan: CHEST 02/27/24- 1. MODERATE ACUTE INTERSTITIAL and ALVEOLAR CARDIOGENIC PULMONARY EDEMA in the RIGHT LUNG.
2. Small right pleural effusion.
3. Small pericardial effusion.
4. Severe calcific atherosclerotic plaque in the coronary arteries and thoracic aorta.
5. Mild mediastinal and right hilar lymphadenopathy which appears new from 01/28/2020 (either reactive or metastatic in etiology).
6. PREVIOUS LEFT PNEUMONECTOMY with pleural thickening and complex pleural fluid opacifying the left hemithorax.
7. Large anterior vertebral body endplate osteophytes in the thoracic spine causing moderate compression on the posterior wall of the mid descending thoracic aorta.
Echo: 01/24/24- Normal left ventricular size, wall thickness and systolic function. No regional wall motion abnormalities are seen. LV ejection fraction is 55-60%. No significant valvular disease. Compared to the previous echo there is no
significant change.
PFT's:
Reports and relevant images were personally reviewed.
-----
Critical Care time 77 mins -- The patient is admitted for acute critical illness for the treatment of vital organ failure and/or prevention of further life-threatening conditions. Total care includes time spent in review of history (including
extensive OP records), physical exam, medications, hemodynamic/ventilator parameters, laboratory data, imaging and discussion with house staff, pharmacy, respiratory therapy, chief digital media officer, and nursing.
--- NOTE | 2024-02-27 13:12 | PHA.VAN.IN ---
Assessment
- Assessment
Renal Function: Appears similar to baseline
Concomitant Antimicrobials: cefepime
AUC Dosing Plan
- Dosing Variables
Dosing Weight (kg): 80
Dosing CrCl (ml/min): 83
Vd coefficient (L/kg): 0.7
- Empiric Dosing
Initial / Loading Dose: 1750mg - administration pending
Maintenance Regimen: Vanc 1000mg Q12H starting 02/27 06
Estimated AUC (mcg*h/mL): 505
Estimated Peak (mcg*h/mL): 30.5
Estimated Trough (mcg/ml): 13.6
Estimated Half Life (H): 9.5
- Monitoring
No levels ordered at this time: consider levels in next few days
Pharmacokinetics Vancomycin I
- -
Patient Age: 68
Patient Sex: Male
Vancomycin Day #: 1
Indication: Pulmonary/Respiratory
Requesting Provider: Dr. Alvares
Pertinent Antimicrobial Allergies:
no pertinent antibiotic allergies
Height / Weight:
Height 5 ft 8 in
Actual Weight 80.4 kg
Pertinent Past Medical History: DM 2, lung cancer s/p L. pneumonectomy (2021)
- Vital Signs / Lab Results
Temp Pulse Resp BP Pulse Ox
97.7 F 123 20 115/63 99
02/27/24 12:52 02/27/24 12:00 02/27/24 12:00 02/27/24 12:00 02/27/24 12:52
Lab Results - Hematology
02/27/24
09:20
WBC 19.3 H
Lab Results - Chemistry
02/27/24
09:20
BUN 18
Creatinine 0.8
Albumin 4.0
02/27/24
09:46
Lactic Acid 4.1 H*
Lab Results - Urine
02/27/24
10:25
Urine Nitrite (Reflex) Negative
Leukocyte Esterase Rfl Negative
Urine WBC (Reflex) 0-2
[2024-02-27 13:17] LABS: Glucose - Point of Care 322 mg/dl (70-99)
--- NOTE | 2024-02-27 13:45 | PTCARENOTE ---
Rec'd patient from ED around 1245. at bedside. Patient drowsy. Mongolian speaking. ST on tele monitor 110-120's. Trace anasarca. +PP. HFNC 60L 100%. Pulse ox 99%. Crackles throughout right lung. Absent sounds on the left. +BS. Voiding via
urinal. Insulin gtt as ordered. Q1hr accuchek.
[2024-02-27] MEDS: VANCOCIN 535 MG IV (14:11)
[2024-02-27] MEDS: LOPRESSOR 75 MG PO (14:13)
[2024-02-27 14:21] LABS: Glucose - Point of Care 252 mg/dl (70-99)
[2024-02-27 15:05] LABS: INR 1.18; PT 14.9 Sec (11.4-14.6)
[2024-02-27 15:06] LABS: APTT 30.7 Sec (23.4-35.0)
[2024-02-27 15:08] LABS: Blood Urea Nitrogen 20 mg/dl (9-20); Calcium 9.3 mg/dl (8.4-10.2); Carbon Dioxide 19 mmol/L (22-30); Chloride 103 mmol/L (98-107); Estimated Creatinine Clearance 111 ml/min; Glucose 232 mg/dl (70-99); Lactic Acid 3.9 mmol/L (0.7-2.0); Potassium 4.2 mmol/L (3.5-5.1); Sodium 132 mmol/L (135-145); eGFR > 60.00
[2024-02-27 15:26] LABS: Glucose - Point of Care 224 mg/dl (70-99)
--- NOTE | 2024-02-27 15:31 | CON.ID ---
Consultation
-
Date/Time Consultation Requested: February 27, 2024 1518
Date/Time Consultation Performed: February 27, 2024 1530
Requesting Provider: Dr. Dawna Alvares
Performing Provider: Dr. Bruna Biggs
Reason for Consultation: COVID
Chief Complaint / Past History
Chief Complaint
SOB
History of Present Illness
History obtained from his at bedside as patient currently critically ill. 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
2021 who presented to the ER today in acute respiratory distress. Per he was fine yesterday. This morning she noted that he was weak. She put him in bed. He then was having respiratory distress and very lethargic. She took his pulse ox
which dropped to 75%. When EMS arrived, his pulse ox was 50%. In the ER patient was febrile 102.8, white count 19.3, lactic acid 4.1. Chest CT shows severe interstitial and alveolar pulmonary edema with small right pleural effusion. Patient also
noted to be in DKA. He was started on vancomycin and cefepime as well as a steroid. Per , no known ill contacts. [facility]. No recent travel. No recent COVID VAX booster.
Past History
Additional Past Medical History:
Diabetes mellitus type 2
COPD
Hypertension
Dyslipidemia
CAD status post PCI 2000 in [place]
PVD
Squamous cell left lung cancer dx 2019, chemoradiation/immunotherapy, status post left pneumonectomy 2021
Allergy History:
atorvastatin Allergy (Verified 12/19/23 18:07)
Rash
Medications Reviewed: Yes
Current Antibiotics:
Vancomycin
cefepime
Social History
Tobacco: Former Smoker
Alcohol: Occasional
Drug: None
Personal:
Family History
Family History: Not Pertinent
Review of Systems
Review of Systems
General: Change in Appetite
HEENT: Negative Sinus Problems, Headache or Pharyngitis
Respiratory: Dyspnea; Negative Sputum Production
Gasteroenterology: Other (no diarrhea); Negative Nausea or Vomiting
Genital / Urological: Negative Dysuria or Flank Pain
Endocrine: Weakness
Musculoskeletal: Negative Arthralgias
Skin / Hair / Nails: Negative Urticaria or Rash
Neurological: Negative Headache or Dizziness
All systems: All other systems were reviewed and were negative
Vital Signs
Temp Pulse Resp BP Pulse Ox
97.2 F 84 17 82/59 100
02/27/24 15:16 02/27/24 15:02 02/27/24 15:02 02/27/24 15:02 02/27/24 15:02
Selected Entries
02/27/24
10:16
Temp 102.8 F H
Physical Exam
Physical Exam
Constitutional: Acutely Ill
Head: Other (No frontal or maxillary sinus tenderness)
Eyes: No Conjunctival Hemorrhage and Sclera Anicteric
Cardiovascular: Regular Rate and S1/S2
Pulmonary: Rales (right )
Gastrointestinal: Soft, Non Tender, Non Distended and Normal Bowel Sounds
Genito-Urinary: Negative CVA Tenderness
Extremities: Negative Edema
Skin: Negative Rash
Neurological: Other (Lethargic but arousable)
Lab / Diagnostic Study Results
02/27/24 09:20
Abs Immat Gran (auto) 0.1 10^3/uL (0-0.05) H 02/27/24 09:20
Absolute Neuts (auto) 15.7 10^3/uL (1.4-6.5) H 02/27/24 09:20
Absolute Lymphs (auto) 2.7 10^3/uL (1.2-3.4) 02/27/24 09:20
Absolute Monos (auto) 0.7 10^3/uL (0.1-0.6) H 02/27/24 09:20
Absolute Basos (auto) 0.1 10^3/uL (0-0.2) 02/27/24 09:20
Immature Gran % 0.6 % (0-0.5) H 02/27/24 09:20
Neutrophils % 81.3 % (42.2-75.2) H 02/27/24 09:20
Lymphocytes % 13.7 % (20.5-51.1) L 02/27/24 09:20
Monocytes % 3.7 % (1.7-9.3) 02/27/24 09:20
Eosinophils % 0.2 % (0-6) 02/27/24 09:20
Basophils % 0.5 % (0-2) 02/27/24 09:20
PT 14.9 Sec (11.4-14.6) H 02/27/24 14:36
INR 1.18 02/27/24 14:36
Lactic Acid 3.9 mmol/L (0.7-2.0) H 02/27/24 14:36
Microbiology Results
Micro:
02/27/24 14:36 Blood Culture - Pending
Blood/Venous
02/27/24 14:36 Nasal Screen MRSA (PCR) - Pending
Nose
02/27/24 09:46 Blood Culture - Pending
Blood/Venous
02/27/[address]: MODERATE ACUTE INTERSTITIAL and ALVEOLAR CARDIOGENIC PULMONARY EDEMA in the RIGHT LUNG.
2. Small right pleural effusion.
3. Small pericardial effusion.
4. Severe calcific atherosclerotic plaque in the coronary arteries and thoracic aorta.
5. Mild mediastinal and right hilar lymphadenopathy which appears new from 01/28/2020 (either reactive or metastatic in etiology).
6. PREVIOUS LEFT PNEUMONECTOMY with pleural thickening and complex pleural fluid opacifying the left hemithorax.
7. Large anterior vertebral body endplate osteophytes in the thoracic spine causing moderate compression on the posterior wall of the mid descending thoracic aorta.
Assessment / Plan
# Severe COVID19 infection
# Severe sepsis, hypotensive
hx COPD, Lung ca/left pneumonectomy
- Symptom onset 02/26.
- COVID ag + 02/26
- Acute hypoxic respiratory failure
- Chest CT: severe interstitial and alveolar opacities
- Start Remdesivir x 5 days.
- Continue dexamethasone.
- Deescalate Vanco/cefepime to empiric ceftriaxone/azithromycin for now.
- COVID isolation
- Trend wbc, fever, BP
# DM2 with DKA
- On insulin gtt
# CAD
- flash pulm edema
- troponin leak
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
Diabetes mellitus type 2
COPD
Hypertension
Dyslipidemia
CAD status post PCI 2000 in [place]
PVD
Squamous cell left lung cancer dx 2019, chemoradiation/immunotherapy, status post left pneumonectomy 2021
[2024-02-27] MEDS: MAXIPIME 1000 MG IV (16:07)
[2024-02-27] MEDS: STERILE WATER FOR INJECTION 10 ML IV ×2 (16:07→19:42)
[2024-02-27 16:17] LABS: Glucose - Point of Care 209 mg/dl (70-99)
[2024-02-27 17:13] LABS: Glucose - Point of Care 165 mg/dl (70-99)
[2024-02-27] MEDS: VEKLURY 250 MG IV (17:25)
[2024-02-27] MEDS: NSS 30 IV (17:26)
[2024-02-27] MEDS: CRESTOR 20 MG PO (17:26)
[2024-02-27] MEDS: ASPIR LOW (ENTERIC COATED) 81 MG PO (17:26)
[2024-02-27] MEDS: ZITHROMAX 500 MG PO (17:26)
[2024-02-27] MEDS: LOVENOX 40 MG SC (17:26)
--- NOTE | 2024-02-27 17:36 | PTCARENOTE ---
Pulse ox 100%. Oxygen weaned to 4L MF. NSR on tele monitor. No other changes in assessment.
[2024-02-27 18:04] LABS: Glucose - Point of Care 156 mg/dl (70-99)
[2024-02-27 18:17] LABS: Lactic Acid 3.8 mmol/L (0.7-2.0)
[2024-02-27 18:26] LABS: Blood Urea Nitrogen 21 mg/dl (9-20); Calcium 9.1 mg/dl (8.4-10.2); Carbon Dioxide 22 mmol/L (22-30); Chloride 102 mmol/L (98-107); Estimated Creatinine Clearance 95 ml/min; Glucose 146 mg/dl (70-99); Potassium 4.5 mmol/L (3.5-5.1); Sodium 134 mmol/L (135-145); eGFR > 60.00
--- NOTE | 2024-02-27 18:45 | PTCARENOTE ---
Troponin resulted at 20.4. BUD Gaytan notified. EKG ordered.
[2024-02-27 19:11] LABS: Glucose - Point of Care 152 mg/dl (70-99)
[2024-02-27] MEDS: LANTUS 0.2 UNITS SC (19:41)
[2024-02-27] MEDS: LOPRESSOR PO (19:42)
[2024-02-27] MEDS: ROCEPHIN 1000 MG IV (19:42)
[2024-02-27] MEDS: MUCINEX 600 MG PO (19:42)
--- NOTE | 2024-02-27 20:00 | PTCARENOTE ---
Resumed care of pt laying in bed AAOx3 with at bedside. Pt drowsy, but easily awakens to voice, Pt Spanish speaking but able to speak and understand broken Taiwanese, at bedside able to translate when needed. Pt denies any complaints of
pain at this time. HR in the 80's in NSR with first degree AV block on the monitor. Most recent lab work being reviewed by Lucila FARRELL. POX 98% on 2 LO2 Mid Flow NC. Pt with hx of left lung pneumonectomy, absent lung sounds on left, dec on right
with fine crackles at base. Occasional non productive cough. HARRIS, Orthopnea noted. + bowel, round abd. Palpable peripheral pulses present. Left AC infusing Insulin gtt per DKA protocol, discontinued per MD order, Lantus administered as ordered and
placed on High dose sliding scale. Heparin gtt now infusing via left forearm int @1000 units/hr per protocol. Remdesivir infusion complete without complication. Pt using the urinal to void when needed. Skin intact. Pt able to position self per
comfort, refusing any pillow under backside at this time. Heels elevated on pillows. Pt kept NPO with sips per MD order. updated at bedside with current plan of care. Face washed, oral care complete. No issues to report at this time. Will
continue to monitor.
--- NOTE | 2024-02-27 20:10 | W.PN.UPDATE ---
Update Note
Progress Note Update
Troponin increased from 0.039 to 20.40, no chest pain noted, EKG showing no significant ischemia from prior EKG
Plan
Cardiology updated and recommended = metoprolol changed to 50MG q6, Lovenox stop, heparin ACS protocol started.
[2024-02-27] MEDS: HEPARIN 25000 UNITS/250 ML IV (20:11)
[2024-02-27 22:07] LABS: Glucose - Point of Care 203 mg/dl (70-99)
[2024-02-28] VITALS (38 sets, daily range): BP systolic 93–118; BP diastolic 51–80; PULSE 100; O2SAT 96; BMI 27.2
--- NOTE | 2024-02-28 | PTCARENOTE ---
Pt resting comfortably. No issues to report. Heparin gtt infusing as ordered. Denies any complaints. No changes in assessment noted at this time. Will continue to monitor.
[2024-02-28] MEDS: NOVOLOG FLEXPEN-HIGH RESISTANCE 2 UNITS SC (00:09)
[2024-02-28 00:10] LABS: Glucose - Point of Care 186 mg/dl (70-99)
[2024-02-28] MEDS: LOPRESSOR PO ×2 (00:10→06:14)
[2024-02-28 01:48] LABS: APTT 64.3 Sec (23.4-35.0)
[2024-02-28 01:50] LABS: Blood Urea Nitrogen 20 mg/dl (9-20); Calcium 9.1 mg/dl (8.4-10.2); Carbon Dioxide 24 mmol/L (22-30); Chloride 103 mmol/L (98-107); Estimated Creatinine Clearance 111 ml/min; Glucose 188 mg/dl (70-99); Sodium 135 mmol/L (135-145); eGFR > 60.00
--- NOTE | 2024-02-28 04:00 | PTCARENOTE ---
PT sleeping intermittently. No changes in assessment noted at this time. Will continue to monitor.
[2024-02-28 06:06] LABS: Glucose - Point of Care 115 mg/dl (70-99)
[2024-02-28] MEDS: NOVOLOG FLEXPEN-HIGH RESISTANCE 1 UNITS SC (06:14)
[2024-02-28 06:54] LABS: % Basophils 0.1 % (0-2); % Immature Granulocytes 0.4 % (0-0.5); % Lymphocytes 9.5 % (20.5-51.1); Absolute Immature Granulocytes 0.1 10^3/uL (0-0.05); Absolute Lymphocytes 1.3 10^3/uL (1.2-3.4); Absolute Monocytes 0.7 10^3/uL (0.1-0.6); Absolute Neutrophils 11.4 10^3/uL (1.4-6.5); Hematocrit 30.1 % (39.0-52.0); Mean Corp Hgb Conc. 33.2 g/dL (33.0-37.0); Mean Corpuscular Hgb 25.2 pg (27.0-31.0); Mean Corpuscular Volume 75.8 fL (80.0-94.0); Mean Platelet Volume 9.5 fL (7.4-10.4); Nucleated Red Blood Cells % 0 % (-); Platelet Count 312 10^3/uL (130-400); Red Blood Cell Count 3.97 10^6/uL (4.70-6.10); Red Cell Dist. Width 16.3 % (11.5-14.5); White Blood Cell Count 13.4 10^3/uL (4.8-10.8)
--- NOTE | 2024-02-28 07:13 | W.PN.INTV ---
Today's Communication / Plan
Recommendations
Significant improvement noted in hypoxemia, now on room air
Peak trop noted, await cards evaluation for management
On BB and IV heparin
Remains in isolation with abx per ID
Can transfer to floors per team, we will follow
Assessment
-
Patient is a 68-year-old male with previous history of diabetes, hypertension, CAD status post stent, locally advanced squamous cell carcinoma status post BOILER FITTER diagnosed in 2019 with subsequent left-sided pneumonectomy presenting to ER with
progressive shortness of breath. On arrival he was notably febrile, COVID-positive. had called 911 after patient appeared to be apneic, she gave eeohq-hi-hoivw resuscitation at home. She notes that his O2 dropped to below 50% prior to EMS
arrival. He is now currently on high flow nasal cannula. On arrival to ER, he has metabolic acidosis with elevated lactate, hyperglycemia for which she is placed on insulin drip.
He is admitted to ICU.
Acute hypoxic respiratory failure, now on high flow nasal cannula
Suspected sepsis, bacterial versus viral
Acute COVID illness
Lactic acidosis
Metabolic acidosis, GAP 14
Hyperglycemia
Right pleural effusion
Elevated trops, suspect possible ACS
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
PVD
Hypercholesteremia
HTN
Diabetes type II
CAD s/p Angioplasty + stent
prior remote PCI in [place] in 2000
Squamous cell lung cancer s/p left pneumonectomy 2021 at [place]
IR biopsy at 2019
Diabetes type 2, controlled
Benign prostatic hyperplasia with nocturia
Plan
No current signs of metabolic encephalopathy or MS changes/following commands
Denies pain at this time.
Pain/sedation: PRN
RASS goals: 0
Hemodynamically stable, not requiring pressors.
Cardiac history reviewed--HLD, HTN, CAD
Severe disease noted on CT, following with Dr Ornelas
He has refused intervention in past
Trop now significantly elevated without EKG changes, await further management plans
Placed on IV heparin
Prior ECHO reviewed indicating normal function
Resume home meds per team
Monitor on telemetry
Oxygen needs: on HFNC, now weaned to RA
AB./
CXR/CT reviewed indicating R sided effusion, L atelectasis with shift
Prior history of lung disease: Squamous cell ca s/p complete L pneumonectomy at [facility]
He has been following with Ignacio Mrudock for his history of lung cancer. His initial lung mass was demonstrating progressive enlargement.
On 08/06/2021 he underwent bronchoscopy with EBUS indicating path consistent with squamous cell carcinoma, 4R and right hilar lymph node were negative for local metastases.
He had been on durvalumab since 06/06/2020.
Initial plan was to do local resection at left lower lobe, but according to his mass abutted against aorta and required massive dissection which ultimately resulted in complete pneumonectomy.
He had been doing well supposedly following his surgery and surveillance scans were stable. He did not require oxygen postoperatively.
She does note he has generally sedentary lifestyle, is not very active since his surgery. He had not received any further treatment postop as well.
Diet advancement
Forest Pathology Professor recommendations
Aspiration precautions, HOB > 30 degrees
Speech therapy eval can be considered if at elevated risk
GI prophylaxis if indicated for mechanical ventilation >48 hours, prior history of GERD, stress ulcer formation in the critically ill
Creat at baseline, no history of renal disease
Void trials
Follow urine output, critical I/Os
Replete electrolytes as needed
Fever and increased WBC on presentation, suspect underlying infection bacterial vs viral
Started on empiric antibiotics
ID following
Procal elevated
Cultures sent/pending
Blood pending
COVID positive--this could be a result in severe viral COVID illness in patient s/p chemo and 1 functional lung
Remdesivir added
Follow fever trend, WBC count
Lactate elevated on admission, continue to trend until <2
CBC stable, no signs of bleeding or coagulopathy.
DVT prophylaxis as assessed based on risk, including mechanical SCDs
Can transfuse if indicated for Hb <7, plt < 10
INR WNL in past
No h/o hypothyroidism
H/o diabetes, poorly controlled
HbA1c 8.0 in 2021
Transitioned quickly to SQ, adjustments as needed
Diagnostic Data
Chest X-Ray: 02/27/24- 1. MODERATE ACUTE INTERSTITIAL and ALVEOLAR CARDIOGENIC PULMONARY EDEMA in the RIGHT LUNG.
2. Previous left pneumonectomy with associated right to left mediastinal shift.
3. Severe calcific atherosclerotic plaque in the thoracic aorta.
12/19/23- New diffuse white out of the left lung suggesting probable pleural fluid and atelectasis. Underlying mass not excluded. Associated mediastinal shift to the left.
CT Scan: CHEST 02/27/24- 1. MODERATE ACUTE INTERSTITIAL and ALVEOLAR CARDIOGENIC PULMONARY EDEMA in the RIGHT LUNG.
2. Small right pleural effusion.
3. Small pericardial effusion.
4. Severe calcific atherosclerotic plaque in the coronary arteries and thoracic aorta.
5. Mild mediastinal and right hilar lymphadenopathy which appears new from 01/28/2020 (either reactive or metastatic in etiology).
6. PREVIOUS LEFT PNEUMONECTOMY with pleural thickening and complex pleural fluid opacifying the left hemithorax.
7. Large anterior vertebral body endplate osteophytes in the thoracic spine causing moderate compression on the posterior wall of the mid descending thoracic aorta.
Echo: 01/24/24- Normal left ventricular size, wall thickness and systolic function. No regional wall motion abnormalities are seen. LV ejection fraction is 55-60%. No significant valvular disease. Compared to the previous echo there is no
significant change.
PFT's:
Reports and relevant images were personally reviewed.
-----
Critical Care time 35 mins -- The patient is admitted for acute critical illness for the treatment of vital organ failure and/or prevention of further life-threatening conditions. Total care includes time spent in review of history (including
extensive OP records), physical exam, medications, hemodynamic/ventilator parameters, laboratory data, imaging and discussion with house staff, pharmacy, respiratory therapy, engineering faculty member, and nursing.
Subjective Dataa
Subjective Data
Date of Service:
Date of Service: February 28, 2024
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
Subjective:
Doing well this AM, now off HFNC and on room air
at bedside
Remains in isolation
Objective Data
Data Reviewed
Vital Signs / I&O / Oxygen:
Vital Signs
Temp Pulse Resp BP Pulse Ox
98.4 F 97 19 107/73 97
02/28/24 00:07 02/28/24 06:30 02/28/24 06:30 02/28/24 06:30 02/28/24 06:30
Intake and Output
02/27/24 02/28/24 02/29/24
06:59 06:59 06:59
Intake Total 1220 / 1220
Output Total 1350 / 1350
Balance -130 / -130
SaO2 97
Nasal Cannula flow liters per 2
minute
Physical Exam
General: Comfortable and Other (NAD)
HEENT: Normocephalic, Anicteric and Moist Mucous Membranes
Cardiovascular: S1-S2 and Regular Rhythm
Respiratory: Clear (R), Non-Labored Respirations and Other (Absent on L)
GI: Soft, Non Distended and Non Tender
Neurology: Awake, Alert, Oriented, AO x 3 and No Motor Deficits
Skin: Warm, Dry and Good Color
Labs/Micro/Reports
Lab Data
02/28/24 06:11
02/28/24 06:00
Laboratory Results
02/27/24 02/27/24 02/28/24
14:36 19:45 01:13
PT 14.9 H
INR 1.18
APTT 30.7 Cancelled 64.3 H
02/28/24
06:00
PT Cancelled
INR Cancelled
APTT
Microbiology
02/27/24 10:25 Urine Legionella Urinary Antigen - Final
Negative for Legionella pneumophila Serogroup 1 antigen.
A negative result does not rule out the possiblity of
Legionella infection due to other serogroups or species of
Legionella. Clinical correlation is recommended.
02/27/24 10:25 Urine Streptococcus pneumoniae Antigen (M - Final
Negative for Streptococcus pneumoniae antigen.
A negative result does not exclude infection with
Streptococcus pneumoniae. Clinical correlation is
recommended.
02/27/24 14:36 Nose Nasal Screen MRSA (PCR) - Final
MRSA not detected - performed by PCR methodology.
--- NOTE | 2024-02-28 08:07 | W.PN.CARDCBS ---
Today's Communication / Plan
-
Cont IV Heparin. Troponin peaked at 20.6 and now trending down.
Monitor tele and EKG
Check limited echo to reeval EF in setting of NSTEMI
Metoprolol was increased overnight.
Resume low dose ACEI if bp can tolerate
Cont statin, ASA
Had long discussion with pt and at bedside regarding hx of abnormal stress and now NSTEMI. Discussed consideration for invasive cath pending echo findings and clinical course with regards to his COVID pneumonia. They have historically wished to
be more conservative. They are still considering but leaning toward medical therapy.
CTA of chest demonstrates severe calcified atherosclerotic plaque in coronary arteries.
Remote PCI in [place] in 2000.
Cont IV diuresis, wt is flat. Monitor daily wts, Is and Os.
Cont tx for COVID PNA and tx for DKA.
Cont pulmonary toilet.
Impression / Plan
-
.
PCP: Eduardo Fofana
Investigator Fraud: Jayson Ornelas
Impression:
Presented 02/27/2024 with acute shortness of breath followed by period of unresponsiveness
Acute hypoxic respiratory failure secondary to COVID-19
Febrile COVID + / Leukocytosis
Acute heart failure with preserved ejection fraction, proBNP 1620
NSTEMI
DKA / Metabolic acidosis with anion gap
Coronary artery disease PCI 2000 in [place]
Tachycardia
PVD
Hypertension
Hyperlipidemia
COPD
Lung cancer s/p Left pneumonectomy 2021, chemo/XRT/Immunotherapy ([place])
Type 2 diabetes
Suspected cognitive impairment
ECHO 01/24/2024: EF 55 to 60%. No significant valvular disease
Echo August 2021: EF 60% with no significant valvular disease
Lexiscan nuclear stress test 01/27/2024: Large in size, moderate in severity partially reversible anterior, apical and inferior defect. Defect does not get better with proning suggesting coronary artery disease. EF 50%
Lexiscan stress test August 2021: Normal perfusion with a EF 68%
Plan:
Cont IV Heparin. Troponin peaked at 20.6 and now trending down.
Monitor tele and EKG
Check limited echo to reeval EF in setting of NSTEMI
Metoprolol was increased overnight.
Resume low dose ACEI if bp can tolerate
Cont statin, ASA
Had long discussion with pt and at bedside regarding hx of abnormal stress and now NSTEMI. Discussed consideration for invasive cath pending echo findings and clinical course with regards to his COVID pneumonia. They have historically wished to
be more conservative. They are still considering but leaning toward medical therapy.
CTA of chest demonstrates severe calcified atherosclerotic plaque in coronary arteries.
Remote PCI in [place] in 2000.
Cont IV diuresis, wt is flat. Monitor daily wts, Is and Os.
Cont tx for COVID PNA and tx for DKA.
Cont pulmonary toilet.
Discussed with at bedside
CCT: 30 min
HPI 02/27/2024:
Patient is a 68-year-old Croatian speaking male with past medical history significant for coronary artery disease with remote PCI in 2000 in [place], nonobstructive PVD, hypertension, hyperlipidemia, type 2 diabetes, former tobacco abuse with COPD
and lung cancer status past left pneumonectomy 2021 with chemo/immunotherapy and radiation who presents 02/27/2024 to emergency department via EMS with an episode of shortness of breath followed by unresponsiveness. Episode was witnessed by his
. Patient was placed on BiPAP by EMS. On presentation to emergency department he was noted to have a fever of 102.8. White count 19.3, lactic acid 4.1. Chest x-ray showed acute interstitial pulmonary edema in the right lung. Chest CTA
confirmed moderate interstitial pulmonary edema with small right pleural effusion, small pericardial effusion and severe calcified atherosclerotic plaque in coronary arteries and thoracic aorta. There was mild mediastinal and right hilar
lymphadenopathy. proBNP 1620. Patient was provided 40 mg IV Lasix. Initial EKG showing tachycardia and was provided IV diltiazem bolus. Repeat EKG sinus tachycardia. Initial troponin 0.039. proBNP 1620. Patient COVID-positive. Started on
empiric IV antibiotics and IV steroids. Patient also noted to have metabolic acidosis with hyperglycemia and anion gap concerning for possible DKA.
Of note patient was seen by Dr. Ornelas in outpatient cardiology office in December 2023 with complaints of intermittent chest pain. He underwent outpatient echocardiogram in January 2024 which showed preserved ejection fraction and no significant valvular
disease. He also had a Lexiscan nuclear stress test which showed moderate partial reversible anterior, apical and inferior defect suggestive of coronary artery disease. There was ongoing discussion with patient regarding proceeding with cardiac
catheterization however patient decided against undergoing any procedure and Imdur 30 mg was added.
History is provided by patient's as patient is primarily Croatian speaking and has some altered mental status/lethargy.
Progress Note - Investigator Fraud
Subjective
Date of Service: February 28, 2024
Objective
Labs:
02/28/24 06:11
02/28/24 06:00
Labs
Hgb 10.0 g/dL (13.0-18.0) L 02/28/24 06:11
Hct 30.1 % (39.0-52.0) L 02/28/24 06:11
Plt Count 312 10^3/uL (130-400) D 02/28/24 06:11
PT Cancelled 02/28/24 06:00
INR Cancelled 02/28/24 06:00
APTT 64.3 Sec (23.4-35.0) H 02/28/24 01:13
Sodium Cancelled 02/28/24 06:00
Potassium Cancelled 02/28/24 06:00
BUN Cancelled 02/28/24 06:00
Creatinine Cancelled 02/28/24 06:00
Glucose Cancelled 02/28/24 06:00
Troponins
02/27/24 02/27/24 02/28/24
09:20 17:48 00:05
Troponin I 0.039 H* 20.400 H* Cancelled
02/28/24 02/28/24
01:13 06:11
Troponin I 20.600 H* 17.500 H*
Vital Signs and I&O:
Vital Signs
Temp Pulse Resp BP Pulse Ox
98.4 F 97 19 107/73 97
02/28/24 00:07 02/28/24 06:30 02/28/24 06:30 02/28/24 06:30 02/28/24 06:30
Vital Signs
Temp Pulse Resp BP Pulse Ox
98.4 F 97 19 107/73 97
02/28/24 00:07 02/28/24 06:30 02/28/24 06:30 02/28/24 06:30 02/28/24 06:30
Intake & Output
02/26/24 02/27/24 02/28/24 02/29/24
06:59 06:59 06:59 06:59
Intake Total 1220 / 1220
Output Total 1350 / 1350
Balance -130 / -130
Physical Exam
Physical Exam
General: No acute distress, AAOX3
Neck: Negative JVD
Heart: Regular, Negative S3 positive S1/S2, Negative S4, No murmur
Lungs: CTA b/l, negative wheezes/rales/rhonchi
Abd: Positive BS, NT/ND, neg rebound/rigidity/guarding
Ext: Negative cyanosis/clubbing/edema
Neuro: nonfocal
--- NOTE | 2024-02-28 08:18 | PN.DE.MGMTRT ---
Insulin Management
- -
02/28/2024 Diabetes Management Consult
Patient admitted 02/26 with episode of unresponsiveness. Patient found by unresponsive, gave rescue breaths, called ambulance. Patient is COVID + with pulmonary edema. PMH 2019 lung CA(s/p L pneumonectomy), HTN, CAD with stent, type 2 diabetes.
Prior to admission was taking glimepiride 4 mg BID with metformin 1000 BID and Januvia 100 mg daily.
A1C 7.2, cr .5, eGFR >60
Unable to speak directly to patient due to covid + status. I spoke with patients nurse. Cardiology OKd diet. Will start 1800 calorie diet with Januvial 100mg daily, first dose now, metformin 1000 mg BId first dose now and glimepiride 4 mg BID.
Patient currently receiving Dexamethasone 6 mg IV Q 24 hours and high resistance corrective insulin Will follow.
Diabetes History
- -
Type of Diabetes: 2
Pre-Admission Diabetes Regimen
02/27/24 02/27/24 02/27/24
09:20 14:36 17:48
Creatinine 0.8 0.6 L Cancelled
02/27/24 02/27/24 02/28/24
17:48 20:00 00:05
Creatinine 0.7 Cancelled Cancelled
02/28/24 02/28/24
01:13 06:00
Creatinine 0.5 L Cancelled
Lab Results
Hemoglobin A1c Cancelled 02/27/24 20:00
Insulin Pump Settings
IP Diabetes Regimen
02/27/24 02/27/24 02/27/24
09:20 10:31 11:38
Glucose 428 H
POC Glucose 420 H 411 H
02/27/24 02/27/24 02/27/24
11:50 13:05 14:08
Glucose 389 H
POC Glucose 322 H 252 H
02/27/24 02/27/24 02/27/24
14:36 15:13 16:05
Glucose 232 H
POC Glucose 224 H 209 H
02/27/24 02/27/24 02/27/24
17:01 17:48 17:48
Glucose Cancelled 146 H
POC Glucose 165 H
02/27/24 02/27/24 02/27/24
17:52 18:58 20:00
Glucose Cancelled
POC Glucose 156 H 152 H
02/27/24 02/27/24 02/28/24
21:56 23:58 00:05
Glucose Cancelled
POC Glucose 203 H 186 H
02/28/24 02/28/24 02/28/24
01:13 05:55 06:00
Glucose 188 H Cancelled
POC Glucose 115 H
Meal type: Dinner
Patient Education
[2024-02-28] MEDS: ZITHROMAX 500 MG PO (09:07)
[2024-02-28] MEDS: PROTONIX 40 MG PO (09:08)
[2024-02-28] MEDS: MUCINEX 600 MG PO ×2 (09:08→19:31)
--- NOTE | 2024-02-28 09:17 | W.PN.HOSP.TC ---
Today's Communication/Plan
-
Stable for IMU
Assessment / Plan
Assessment / Plan
HPI: 68-year-old male with a past medical history of lung cancer status post left pneumonectomy, CAD, HTN, HL, PVD, COPD, and DM2 presents with acute onset of shortness of breath with unresponsiveness this morning. Patient's came home from
work, and found him short of breath and unresponsive. She opened his mouth, and gave him rescue breaths. Medics found him agonal breathing, and placed him on CPAP. denies any sick contacts. She denies him having nausea, vomiting, or
diarrhea. She does report that he is weak. Patient was found to be COVID-positive, febrile, and tachycardic. He has had all his COVID vaccinations.
#Sepsis
#Acute coronavirus pneumonia
#Concern for bacterial pneumonia
Urine Legionella antigen negative, strep antigen negative, MRSA negative. Blood cultures negative to date
Appreciate ID and oracle application consultant input. Status post vancomycin and cefepime
Continue Rocephin/azithromycin day 2
Continue dexamethasone/remdesivir day 2
Continue pulmonary toileting
#Non-ST elevation myocardial infarction
Troponin peaked at 20.6, trending down.
Echo ejection fraction 45 to 50% by visual
assessment, 48% by volumetric assessment. Hypokinesis of the mid to apical
anteroseptal and anterior wall.
Appreciate cardiology input, continue aspirin, statin, metoprolol, IV heparin drip
Resume low-dose YAO inhibitor if blood pressure can tolerate
#Flash pulmonary edema
Status post Lasix 40 mg IV in the ED
Appreciate cardiology input, continue IV Lasix, monitor daily weights, monitor creatinine
#Acute hypoxic respiratory failure
Patient initially requiring high flow, now on room air
#Diabetic ketoacidosis
#Type 2 diabetes
Appreciate oracle application consultant input, gap closed on insulin drip
Appreciate diabetes nurse practitioner, metformin, Januvia, glimepiride resumed, continue sliding scale insulin
#Sinus tachycardia
Status post Cardizem in the ED
Continue metoprolol, treat underlying conditions as above
#Hypotension
Improved, hold Imdur
#History of lung cancer status post left pneumonectomy
Follows with Dr. Mota at [facility]
#Gastroesophageal reflux disease
Continue PPI
#Hyponatremia
Mild, monitor
DVT prophylaxis�subcu Lovenox
Full code
Updated at bedside 02/27
Total time spent to see the patient on the floor, examine the patient, review data and lab results, discuss treatment plan with patient, nursing staff around 55 minutes.
Physical Exam
General: Appears to not feel well, no acute distress
HEENT: Normocephalic, Atraumatic, EOMI, MMM
Respiratory: Coarse breath sounds with rhonchi
Cardiac: Normal S1/S2, Regular Rate and Rhythm
GI: Soft, Nontender, Nondistended, Normal Bowel Sounds
Extremities: No Clubbing, Cyanosis, or Edema
Neuro: Nonfocal/Grossly Intact
Psych: Calm, Cooperative
Derm: No Visible lesions
Anticipated Discharge: > 48 hours
Subjective/Interval History
-
Date of Service: February 27, 2024
Patient reports feeling much better today. He denies shortness of breath, denies chest pain. He does have a cough, sometimes productive. Fever resolved.
Objective Data
-
Labs:
Laboratory Results
02/27/24 02/27/24 02/27/24
09:20 11:50 14:36
WBC 19.3 H
Hgb 12.1 L
Hct 37.3 L
Plt Count 417 H
PT 14.9 H
INR 1.18
APTT 30.7
Sodium 134 L 132 L
Potassium 4.7 4.2
Chloride 100 103
Carbon Dioxide 20 L 19 L
BUN 18 20
Creatinine 0.8 0.6 L
Glucose 428 H 389 H 232 H
Calcium 9.5 9.3
Total Bilirubin 0.5
AST 22
ALT 17
Alkaline Phosphatase 140 H
02/27/24 02/27/24 02/27/24
16:00 18:00 20:00
WBC
Hgb
Hct
Plt Count
PT
INR
APTT
Sodium Pending Pending Pending
Potassium Pending Pending Pending
Chloride Pending Pending Pending
Carbon Dioxide Pending Pending Pending
BUN Pending Pending Pending
Creatinine Pending Pending Pending
Glucose Pending Pending Pending
Calcium Pending Pending Pending
Total Bilirubin
AST
ALT
Alkaline Phosphatase
Vital Signs:
Vital Signs
Temp Pulse Resp BP Pulse Ox
97.2 F 90 15 92/65 100
02/27/24 15:16 02/27/24 17:00 02/27/24 17:00 02/27/24 17:00 02/27/24 17:00
I&O
02/26/24 02/27/24 02/28/24
06:59 06:59 06:59
Intake Total 535 / 535
Output Total 900 / 900
Balance -365 / -365
--- NOTE | 2024-02-28 09:20 | PTCARENOTE ---
Rec'd care of patient at 0700. at bedside. Patient alert and oriented. NSR with first degree avb on tele monitor. Vitals stable. Weaned to RA. Pulse ox 95%. Lung sounds coarse throughout right lung. +BS. Voiding via urinal. Heparin gtt infusing
through left forearm INT.
[2024-02-28 09:23] LABS: Glycohemoglobin (HgbA1c) 7.2 % (4.0-5.6)
--- NOTE | 2024-02-28 09:38 | W.PN.ID1 ---
Date of Service
Date of Service: February 28, 2024
Today's Communication
Continue Remdesivir.
Assessment / Plan
# Severe COVID19 infection
# Severe sepsis, hypotensive: improving
hx COPD, Lung ca/left pneumonectomy
- Symptom onset 02/26.
- COVID ag + 02/26
- Acute hypoxic respiratory failure: improving
- Chest CT: severe interstitial and alveolar opacities
- Continue Remdesivir (day 2)
- Continue dexamethasone.
- Continue empiric ceftriaxone/azithromycin (d2) for now.
- COVID isolation
- Trend wbc, fever, BP
# CAD
- troponin peaked 21.6, now on heparing gtt
# DM2 with DKA
- On insulin gtt
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
Diabetes mellitus type 2
COPD
Hypertension
Dyslipidemia
CAD status post PCI 2000 in [place]
PVD
Squamous cell left lung cancer dx 2019, chemoradiation/immunotherapy, status post left pneumonectomy 2021
Chief Complaint
-: Other (COVID)
Subjective / Review of Systems
Patient reports feeling better today. +Non-productive cough.
Alert and oriented x 3. No chest pain.
Vital Signs / Physical Exam
Vital Signs
Vital Signs
Temp Pulse Resp BP Pulse Ox
98.4 F 80 17 104/57 95
02/28/24 00:07 02/28/24 08:30 02/28/24 08:30 02/28/24 08:30 02/28/24 09:17
Physical Exam
Constitutional: No Acute Distress and Comfortable
Eyes: No Conjunctival Hemorrhage and Sclera Anicteric
Cardiovascular: Regular Rate and S1/S2
Pulmonary: Rales (right)
Gastrointestinal: Soft, Non Tender, Non Distended and Normal Bowel Sounds
Extremities: Negative Edema
Neurological: AO x 3
Objective Data
Lab Data
Lab Results
02/28/24 06:11
02/28/24 06:00
PT Cancelled 02/28/24 06:00
INR Cancelled 02/28/24 06:00
APTT 64.3 Sec (23.4-35.0) H 02/28/24 01:13
Estimated Creat Clear Cancelled 02/28/24 06:00
Lactic Acid 1.0 mmol/L (0.7-2.0) 02/28/24 00:05
Total Bilirubin Cancelled 02/28/24 06:00
AST Cancelled 02/28/24 06:00
ALT Cancelled 02/28/24 06:00
Alkaline Phosphatase Cancelled 02/28/24 06:00
Most recent labs reviewed.
Micro Results:
02/27/24 10:25 Legionella Urinary Antigen - Final
Urine Negative for Legionella pneumophila Serogroup 1 antigen.
A negative result does not rule out the possiblity of
Legionella infection due to other serogroups or species of
Legionella. Clinical correlation is recommended.
Streptococcus pneumoniae Antigen (M - Final
Negative for Streptococcus pneumoniae antigen.
A negative result does not exclude infection with
Streptococcus pneumoniae. Clinical correlation is
recommended.
02/27/24 14:36 Nasal Screen MRSA (PCR) - Final
Nose MRSA not detected - performed by PCR methodology.
02/27/24 14:36 Blood Culture - Pending
Blood/Venous
02/27/24 09:46 Blood Culture - Pending
Blood/Venous
02/27/[address]: MODERATE ACUTE INTERSTITIAL and ALVEOLAR CARDIOGENIC PULMONARY EDEMA in the RIGHT LUNG.
2. Small right pleural effusion.
3. Small pericardial effusion.
4. Severe calcific atherosclerotic plaque in the coronary arteries and thoracic aorta.
5. Mild mediastinal and right hilar lymphadenopathy which appears new from 01/28/2020 (either reactive or metastatic in etiology).
6. PREVIOUS LEFT PNEUMONECTOMY with pleural thickening and complex pleural fluid opacifying the left hemithorax.
7. Large anterior vertebral body endplate osteophytes in the thoracic spine causing moderate compression on the posterior wall of the mid descending thoracic aorta.
[2024-02-28 09:45] LABS: APTT 75.1 Sec (23.4-35.0)
--- NOTE | 2024-02-28 10:54 | CM ---
CM following re: discharge planning.
Discussed in Rounds, reviewed pt's chart, met with pt and pt's spouse Andree at bedside.
Pt is a 68 year old male, admitted with primary dx of Acute hypoxic respiratory failure, Sepsis, COVID+. Currently on room air.
Pt reporters he lives with spouse in a rancher style house, no steps to enter, has 2 supportive sons. 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
Pt's spouse stated that pt will not accept SNF level of care and he will never go to a rehab facility. Per spouse, home PT will be the past acceptable option to the pt.
PT and OT will evaluate the pt to determine a level of care at discharge.
PCP: Eduardo Guzman
Pharmacy: [facility]
D/C plan: per pt and his spouse request, home with VN services and family support.
CM will follow with discharge plan updates as hospitalization progresses
--- NOTE | 2024-02-28 11:06 | PTCARENOTE ---
Patient assisted to bedside commode for large BM. Heavy assistance x2. PT ordered. Hospitalist contacted for OT order. Echo in process at bedside. Vitals stable. Heparin gtt infusing as ordered. Next PTT due at 1600. No other changes.
[2024-02-28] MEDS: GLUCOPHAGE 1000 MG PO ×2 (12:42→16:56)
[2024-02-28] MEDS: JANUVIA 100 MG PO (12:43)
[2024-02-28] MEDS: VEKLURY 250 MG IV (12:43)
[2024-02-28] MEDS: DECADRON 6 MG IV (12:44)
[2024-02-28] MEDS: NSS 30 IV (12:44)
[2024-02-28] MEDS: LOPRESSOR 50 MG PO ×3 (12:47→23:00)
--- NOTE | 2024-02-28 12:50 | PTCARENOTE ---
Patient downgraded to IMU level. Set up in bed to eat lunch. Appetite improved. PT/OT to see patient later in shift.
[2024-02-28 12:53] LABS: Glucose - Point of Care 82 mg/dl (70-99)
--- NOTE | 2024-02-28 15:07 | PTCARENOTE ---
Patient oob in chair by PT/OT. Goal of 1 hr. VSS.
[2024-02-28 16:30] LABS: APTT 54.1 Sec (23.4-35.0)
--- NOTE | 2024-02-28 16:30 | PTCARENOTE ---
recd pt 1600 maintained on novel isolation, visiting in room, assisting with translation Lithuanian/Mauritanian. assessed as noted, no c/o, denies CP, tolerating room air.
[2024-02-28] MEDS: AMARYL 4 MG PO (16:56)
[2024-02-28] MEDS: NOVOLOG FLEXPEN-HIGH RESISTANCE 4 UNITS SC (16:56)
[2024-02-28] MEDS: HEPARIN 25000 UNITS/250 ML IV (16:58)
[2024-02-28 17:11] LABS: Glucose - Point of Care 220 mg/dl (70-99)
[2024-02-28] MEDS: CRESTOR 20 MG PO (18:06)
[2024-02-28] MEDS: ASPIR LOW (ENTERIC COATED) 81 MG PO (18:06)
[2024-02-28] MEDS: ROCEPHIN 1000 MG IV (19:31)
[2024-02-28] MEDS: STERILE WATER FOR INJECTION 10 ML IV (19:31)
[2024-02-28 19:41] LABS: Glucose - Point of Care 220 mg/dl (70-99)
--- NOTE | 2024-02-28 19:56 | PTCARENOTE ---
rec'd patient. assessment as documented. at bedside, updated on plan of care. pt oriented x3, on RA, denies CP/SOB, SR on monitor. coarse BS on R, absent on L. urinal at bedside. heparin gtt infusing through PIV, PTT due at 2200. IMU status.
call riddle within reach, care ongoing.
[2024-02-28 22:40] LABS: APTT 66.8 Sec (23.4-35.0)
[2024-02-29] VITALS (29 sets, daily range): BP systolic 50–125; BP diastolic 12–78; BMI 27.3
[2024-02-29] MEDS: LOPRESSOR 50 MG PO ×4 (05:05→22:48)
--- NOTE | 2024-02-29 05:21 | PTCARENOTE ---
AM labs sent. pt remains on RA, denies CP/SOB. afebrile. heparin gtt continues. call riddle within reach.
[2024-02-29 05:40] LABS: % Basophils 0.2 % (0-2); % Immature Granulocytes 0.5 % (0-0.5); % Monocytes 4.8 % (1.7-9.3); % Neutrophils 84.5 % (42.2-75.2); Absolute Immature Granulocytes 0.1 10^3/uL (0-0.05); Absolute Lymphocytes 1.3 10^3/uL (1.2-3.4); Absolute Monocytes 0.6 10^3/uL (0.1-0.6); Absolute Neutrophils 10.8 10^3/uL (1.4-6.5); Hematocrit 31.2 % (39.0-52.0); Hemoglobin 10.5 g/dL (13.0-18.0); Mean Corp Hgb Conc. 33.7 g/dL (33.0-37.0); Mean Corpuscular Hgb 25.6 pg (27.0-31.0); Mean Corpuscular Volume 76.1 fL (80.0-94.0); Mean Platelet Volume 9.2 fL (7.4-10.4); Nucleated Red Blood Cells % 0 % (-); Platelet Count 318 10^3/uL (130-400); Red Cell Dist. Width 16.7 % (11.5-14.5); White Blood Cell Count 12.8 10^3/uL (4.8-10.8)
[2024-02-29 05:47] LABS: APTT 98.6 Sec (23.4-35.0)
[2024-02-29 06:04] LABS: Blood Urea Nitrogen 25 mg/dl (9-20); Calcium 9.2 mg/dl (8.4-10.2); Carbon Dioxide 25 mmol/L (22-30); Chloride 104 mmol/L (98-107); Estimated Creatinine Clearance 111 ml/min; Glucose 134 mg/dl (70-99); Potassium 5.5 mmol/L (3.5-5.1); Sodium 135 mmol/L (135-145); eGFR > 60.00
--- NOTE | 2024-02-29 06:34 | PTCARENOTE ---
gem CARBONATION TESTER made aware of AM potassium 5.5, awaiting orders
--- NOTE | 2024-02-29 07:14 | W.PN.PUL3 ---
Today's Communication / Plan
-
Now on RA, recovered quickly, no new issues
Trop elevation--cath pending per cards team, maintained on IV heparin
Cultures negative, can likely stop abx
Can also likely stop RemD/steroids--will defer to ID
PT/OT eval, OOB encouraged
Transfer to IVU, we will sign off at this time, please call with questions
Assessment
-
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
progressive shortness of breath. On arrival he was notably febrile, COVID-positive. had called 911 after patient appeared to be apneic, she gave [id number] resuscitation at home. She notes that his O2 dropped to below 50% prior to EMS
arrival. He is now currently on high flow nasal cannula. On arrival to ER, he has metabolic acidosis with elevated lactate, hyperglycemia for which she is placed on insulin drip.
He is admitted to ICU.
Acute hypoxic respiratory failure, now on high flow nasal cannula
Suspected sepsis, bacterial versus viral
Acute COVID illness
Lactic acidosis
Metabolic acidosis
Hyperglycemia
Right pleural effusion
Elevated trops, suspect possible ACS
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
PVD
Hypercholesteremia
HTN
Diabetes type II
CAD s/p Angioplasty + stent
prior remote PCI in [place] in 2000
Squamous cell lung cancer s/p left pneumonectomy 2021 at [place]
IR biopsy at 2019
Diabetes type 2, controlled
Benign prostatic hyperplasia with nocturia
Plan
Hemodynamically stable, not requiring pressors.
Cardiac history reviewed--HLD, HTN, CAD
Severe disease noted on CT, following with Dr Ornelas
He has refused intervention in past
Trop now significantly elevated without EKG changes, await further management plans
Placed on IV heparin
Prior ECHO reviewed indicating normal function
Resume home meds per team
Monitor on telemetry
Oxygen needs: on HFNC, now weaned to RA
AB.//18
CXR/CT reviewed indicating R sided effusion, L atelectasis with shift
Prior history of lung disease: Squamous cell ca s/p complete L pneumonectomy at [facility]
He has been following with [facility] for his history of lung cancer. His initial lung mass was demonstrating progressive enlargement.
On 08/06/2021 he underwent bronchoscopy with EBUS indicating path consistent with squamous cell carcinoma, 4R and right hilar lymph node were negative for local metastases.
He had been on durvalumab since 06/06/2020.
Initial plan was to do local resection at left lower lobe, but according to his mass abutted against aorta and required massive dissection which ultimately resulted in complete pneumonectomy.
He had been doing well supposedly following his surgery and surveillance scans were stable. He did not require oxygen postoperatively.
She does note he has generally sedentary lifestyle, is not very active since his surgery. He had not received any further treatment postop as well.
Fever and increased WBC on presentation, COVID+
Started on empiric antibiotics, Procal elevated
ID following
Cultures sent, negative
Remdesivir added
Follow fever trend, WBC count
CBC stable, no signs of bleeding or coagulopathy.
DVT prophylaxis as assessed based on risk, including mechanical SCDs
Can transfuse if indicated for Hb <7, plt < 10
INR WNL in past
No h/o hypothyroidism
H/o diabetes, poorly controlled
HbA1c 8.0 in 2021
Transitioned quickly to SQ, adjustments as needed
Diagnostic Data
Chest X-Ray: 02/27/24- 1. MODERATE ACUTE INTERSTITIAL and ALVEOLAR CARDIOGENIC PULMONARY EDEMA in the RIGHT LUNG.
2. Previous left pneumonectomy with associated right to left mediastinal shift.
3. Severe calcific atherosclerotic plaque in the thoracic aorta.
12/19/23- New diffuse white out of the left lung suggesting probable pleural fluid and atelectasis. Underlying mass not excluded. Associated mediastinal shift to the left.
CT Scan: CHEST 02/27/24- 1. MODERATE ACUTE INTERSTITIAL and ALVEOLAR CARDIOGENIC PULMONARY EDEMA in the RIGHT LUNG.
2. Small right pleural effusion.
3. Small pericardial effusion.
4. Severe calcific atherosclerotic plaque in the coronary arteries and thoracic aorta.
5. Mild mediastinal and right hilar lymphadenopathy which appears new from 01/28/2020 (either reactive or metastatic in etiology).
6. PREVIOUS LEFT PNEUMONECTOMY with pleural thickening and complex pleural fluid opacifying the left hemithorax.
7. Large anterior vertebral body endplate osteophytes in the thoracic spine causing moderate compression on the posterior wall of the mid descending thoracic aorta.
Echo: 01/24/24- Normal left ventricular size, wall thickness and systolic function. No regional wall motion abnormalities are seen. LV ejection fraction is 55-60%. No significant valvular disease. Compared to the previous echo there is no
significant change.
PFT's:
Reports and relevant images were personally reviewed.
Subjective Data
-
Date of Service:
Date of Service: February 29, 2024
Chief Complaint: Pulmonary Follow Up
Subjective:
Doing well, stable on RA
Some confusion noted by
Otherwise denies pain
Objective Data
Data Reviewed
Vital Signs / I&O / Oxygen:
Vital Signs
Temp Pulse Resp BP Pulse Ox
97.6 F 64 16 106/61 96
02/29/24 02:38 02/29/24 06:00 02/29/24 06:00 02/29/24 06:00 02/29/24 05:04
Intake and Output
02/28/24 02/29/24 03/01/24
06:59 06:59 06:59
Intake Total 1220 / 1231 1482 / 1482
Output Total 1350 / 1350 1100 / 1100
Balance -130 / -119 382 / 382
SaO2 96
Nasal Cannula flow liters per 2
minute
Physical Exam
General: Comfortable and Other (NAD)
HEENT: Normocephalic, Anicteric and Moist Mucous Membranes
Cardiovascular: S1-S2 and Regular Rhythm
Respiratory: Clear (R), Non-Labored Respirations and Other (absent on L)
GI: Soft, Non Distended and Non Tender
Neurology: Awake, Alert, Oriented, AO x 3 and No Motor Deficits
Skin: Warm, Dry and Good Color
Labs/Micro/Reports
Lab Data
02/29/24 05:17
02/29/24 05:17
Laboratory Results
02/28/24 02/28/24 02/28/24
09: 15:45 22:22
APTT 75.1 H 54.1 H 66.8 H
02/29/24
05:17
APTT 98.6 H
Microbiology
02/27/24 14:36 Blood/Venous Blood Culture - Preliminary
No Growth in 24 hours- Final report to follow
02/27/24 09:46 Blood/Venous Blood Culture - Preliminary
No Growth in 24 hours- Final report to follow
02/27/24 10:25 Urine Legionella Urinary Antigen - Final
Negative for Legionella pneumophila Serogroup 1 antigen.
A negative result does not rule out the possiblity of
Legionella infection due to other serogroups or species of
Legionella. Clinical correlation is recommended.
02/27/24 10:25 Urine Streptococcus pneumoniae Antigen (M - Final
Negative for Streptococcus pneumoniae antigen.
A negative result does not exclude infection with
Streptococcus pneumoniae. Clinical correlation is
recommended.
02/27/24 14:36 Nose Nasal Screen MRSA (PCR) - Final
MRSA not detected - performed by PCR methodology.
[2024-02-29] MEDS: PROTONIX 40 MG PO (08:16)
[2024-02-29] MEDS: AMARYL 4 MG PO ×2 (08:16→17:15)
[2024-02-29] MEDS: MUCINEX 600 MG PO ×2 (08:16→19:31)
[2024-02-29] MEDS: ZITHROMAX 500 MG PO (08:16)
[2024-02-29] MEDS: JANUVIA 100 MG PO (08:16)
[2024-02-29] MEDS: LOKELMA 5 GRAM PO (08:16)
--- NOTE | 2024-02-29 08:20 | PTCARENOTE ---
0700 patient seen in bed. Language barrier, patient speaks Mauritanian. Translation provided by pt's . Glasses Patient AAO x3; Flat affect noted. BP 103/48 MAP 61; SR 63 RR 17; 97 RA . Lungs diminished to auscultation. No SOb No cough . Abdomen
soft non-tender. Voiding in a urinal No edema pedal pulses palatable . patient needs encouragement with self ADLs . call riddle within reach. HoB elevated
[2024-02-29 08:29] LABS: Glucose - Point of Care 135 mg/dl (70-99)
--- NOTE | 2024-02-29 08:37 | W.PN.CARDCBS ---
Addendum entered and electronically signed by Guillermo Evans MD 02/29/24 13:28:
I saw and examined the patient.
The Grade Recorder's note was reviewed and I agree with the note.
Comment: Briefly, 68-year-old man past medical history of CAD with remote PCI presenting with hypoxic respiratory failure and found to be COVID-positive
Cardiology was consulted for abnormal troponin
Initial troponin was borderline positive and then brandi to peak at 20
Transthoracic echocardiogram with anterior wall motion abnormality and mildly reduced ejection fraction
Of note he had a recent outpatient nuclear stress test which revealed anterior ischemia
Continue aspirin, high intensity statin, metoprolol and heparin drip
Patient was reporting some left-sided chest shoulder and arm discomfort this AM
As needed sublingual nitro ordered for recurrent pain
Tentative plan for invasive coronary angiography later today
Original Note:
Today's Communication / Plan
-
Check ECG now
Cont Lopressor
Adding NTG SL PRN chest pain
Consideration for cath
Impression / Plan
-
PCP: Eduardo Fofana
Superintendent Pressure: Jayson Ornelas
Impression:
Presented with acute shortness of breath followed by period of unresponsiveness 02/27/2024
Acute hypoxic respiratory failure secondary to COVID-19
Febrile COVID + / Leukocytosis
DKA / Metabolic acidosis with anion gap
Acute HF with mildly reduced EF
Newly diagnosed ischemic CM EF 45% by echo 02/28/24:
NSTEMI, peak Troponin 20.6
CAD h/o PCI unknown vessel in [place] 2000
Tachycardia
PVD
Hypertension
Hyperlipidemia
COPD
Lung cancer s/p Left pneumonectomy 2021, chemo/XRT/Immunotherapy ([facility])
Type 2 diabetes
Suspected cognitive impairment
Lexiscan nuclear stress test 01/27/2024: Large in size, moderate in severity partially reversible anterior, apical and inferior defect. Defect does not get better with proning suggesting coronary artery disease. EF 50%
Lexiscan stress test August 2021: Normal perfusion with a EF 68%
Echo August 2021: EF 60% with no significant valvular disease
ECHO 01/24/2024: EF 55 to 60%. No significant valvular disease
Echo 02/28/2024: Limited study, EF 45 to 50%, hypokinesis of the mid to apical anteroseptal and anterior wall, this is new compared to echo 01/24/2024
Plan:
-Patient and in room and patient communicates via his . Patient reports chest pain starting upon our arrival into his room 02/29/24 AM and it's a pain from the left shoulder to the chest and it is similar to pain he has been having for the
last several months. Pain over the last several months is described as an almost daily occurrence, lasting 10-20 seconds at a time and having 1-2 episodes a day. Pain without specific provocative or palliative factors. Pain prompted a stress test as
outlined above which showed a new, large, moderate, partially reversible defect anterior, apical and inferior. Patient was started on Imdur ER 30 mg daily, but was still having pain prior to admission. Imdur ER has been held since admission due to
hypotension.
-ECG now ordered by me and ECG reviewed by me is stable compared to 02/28/24. Overall ECG this admission has new anterolateral T wave changes. Echo from 02/28/24 with new anterior hypokinesis.
-Talked with patient and 02/29/24 that changes are concerning for coronary ischemia. Patient has in the past desired to be conservative due to possible underlying cognitive dysfunction. Talked about cardiac cath this admission and trying to
determine timing.
-Heparin gtt renewed
-Cont aspirin 81 mg daily
-Outpatient dose of Lopressor has been increased to 50 mg q6 hours. Consider transitioning to Toprol XL pending
-Outpatient dose of lisinopril 5 mg daily is on hold due to hypotension
-Outpatient dose of Imdur ER 30 mg daily is on hold due to hypotension
-pro-BNP 1620, he has a previous left pneumonectomy and evidence of pulmonary edema with small right pleural effusion by CT 02/27/24. Patient was not taking a diuretic prior to admission.
-Afebrile since 02/27/24. Decadron and Remdesivir ordered
HPI 02/27/2024: Patient is a 68-year-old Gambian speaking male with past medical history significant for coronary artery disease with remote PCI in 2000 in [place], nonobstructive PVD, hypertension, hyperlipidemia, type 2 diabetes, former tobacco
abuse with COPD and lung cancer status past left pneumonectomy 2021 with chemo/immunotherapy and radiation who presents 02/27/2024 to emergency department via EMS with an episode of shortness of breath followed by unresponsiveness. Episode was
witnessed by his . Patient was placed on BiPAP by EMS. On presentation to emergency department he was noted to have a fever of 102.8. White count 19.3, lactic acid 4.1. Chest x-ray showed acute interstitial pulmonary edema in the right lung.
Chest CTA confirmed moderate interstitial pulmonary edema with small right pleural effusion, small pericardial effusion and severe calcified atherosclerotic plaque in coronary arteries and thoracic aorta. There was mild mediastinal and right hilar
lymphadenopathy. proBNP 1620. Patient was provided 40 mg IV Lasix. Initial EKG showing tachycardia and was provided IV diltiazem bolus. Repeat EKG sinus tachycardia. Initial troponin 0.039. proBNP 1620. Patient COVID-positive. Started on
empiric IV antibiotics and IV steroids. Patient also noted to have metabolic acidosis with hyperglycemia and anion gap concerning for possible DKA. Of note patient was seen by Dr. Ornelas in outpatient cardiology office in December 2023 with complaints
of intermittent chest pain. He underwent outpatient echocardiogram in January 2024 which showed preserved ejection fraction and no significant valvular disease. He also had a Lexiscan nuclear stress test which showed moderate partial reversible
anterior, apical and inferior defect suggestive of coronary artery disease. There was ongoing discussion with patient regarding proceeding with cardiac catheterization however patient decided against undergoing any procedure and Imdur 30 mg was
added.
History is provided by patient's as patient is primarily Gambian speaking and has some altered mental status/lethargy.
Progress Note - Superintendent Pressure
Subjective
Date of Service: February 29, 2024
He started with chest pain when we walked into the room
Objective
Labs:
02/29/24 05:17
02/29/24 05:17
Labs
Hgb 10.5 g/dL (13.0-18.0) L 02/29/24 05:17
Hct 31.2 % (39.0-52.0) L 02/29/24 05:17
Plt Count 318 10^3/uL (130-400) 02/29/24 05:17
PT Cancelled 02/28/24 06:00
INR Cancelled 02/28/24 06:00
APTT 98.6 Sec (23.4-35.0) H 02/29/24 05:17
Sodium 135 mmol/L (135-145) 02/29/24 05:17
Potassium 5.5 mmol/L (3.5-5.1) H 02/29/24 05:17
BUN 25 mg/dl (9-20) H 02/29/24 05:17
Creatinine 0.5 mg/dL (0.7-1.3) L 02/29/24 05:17
Glucose 134 mg/dl (70-99) H 02/29/24 05:17
Troponins
02/27/24 02/27/24 02/28/24
09:20 17:48 00:05
Troponin I 0.039 H* 20.400 H* Cancelled
02/28/24 02/28/24
01:13 06:11
Troponin I 20.600 H* 17.500 H*
Vital Signs and I&O:
Vital Signs
Temp Pulse Resp BP Pulse Ox
97.6 F 65 16 103/48 96
02/29/24 02:38 02/29/24 08:18 02/29/24 06:00 02/29/24 08:18 02/29/24 08:18
Vital Signs
Temp Pulse Resp BP Pulse Ox
97.6 F 65 16 103/48 96
02/29/24 02:38 02/29/24 08:18 02/29/24 06:00 02/29/24 08:18 02/29/24 08:18
Intake & Output
02/27/24 02/28/24 02/29/24 03/01/24
06:59 06:59 06:59 06:59
Intake Total 1220 / 1231 1482 / 1482
Output Total 1350 / 1350 1100 / 1100 350 / 350
Balance -130 / -119 382 / 382 -322 / -322
Physical Exam
Physical Exam
General: NAD, AAOX3
HEENT: EOMI, MMM
Heart: Regular, no murmur
Lungs: No BS on left. Coarse BS throughout right side, no wheeze
Abd: +BS, ND, NT, soft
Ext: No clubbing, cyanosis, lesions or edema B/L
Neuro: nonfocal
--- NOTE | 2024-02-29 08:39 | PN.DE.MGMTRT ---
Insulin Management
- -
02/29/2024 Diabetes Management Consult Follow up
Patient admitted 02/26 with episode of unresponsiveness. Patient found by unresponsive, gave rescue breaths, called ambulance. Patient is COVID + with pulmonary edema. PMH 2019 lung CA(s/p L pneumonectomy), HTN, CAD with stent, type 2 diabetes.
Prior to admission was taking glimepiride 4 mg BID with metformin 1000 BID and Januvia 100 mg daily.
A1C 7.2, cr .5, eGFR >60
Unable to speak directly to patient due to covid + status. I spoke with patients nurse.
Diet started with lunch yesterday, 1800 calorie. PO diabetes medications, Januvia 100mg daily,and metformin 1000 mg BID both given. Glimepiride 4 mg BID started with dinner. Pre dinner glucose elevated, 220, without glimepiride onboard. Will
continue PO meds with corrective insulin today and assess for needed changes to regimen.
Patient currently receiving Dexamethasone 6 mg IV Q 24 hours and high resistance corrective insulin Will follow.
Diabetes History
- -
Type of Diabetes: 2
Pre-Admission Diabetes Regimen
02/29/24
05:17
Creatinine 0.5 L
Lab Results
Hemoglobin A1c Cancelled 02/27/24 20:00
Insulin Pump Settings
IP Diabetes Regimen
02/28/24 02/28/24 02/28/24
12:40 16:54 19:30
Glucose
POC Glucose 82 220 H 220 H
02/29/24 02/29/24
05:17 08:08
Glucose 134 H
POC Glucose 135 H
Meal type: Dinner
Amount consumed: 95%
Patient Education
--- NOTE | 2024-02-29 08:41 | W.PN.HOSP.TC ---
Addendum entered and electronically signed by Rolando Alvares MD 02/29/24 15:25:
#Hyperkalemia
Resolved status post Lokelma
Original Note:
Today's Communication/Plan
-
For cardiac catheterization today
Assessment / Plan
Assessment / Plan
HPI: 68-year-old male with a past medical history of lung cancer status post left pneumonectomy, CAD, HTN, HL, PVD, COPD, and DM2 presents with acute onset of shortness of breath with unresponsiveness this morning. Patient's came home from
work, and found him short of breath and unresponsive. She opened his mouth, and gave him rescue breaths. Medics found him agonal breathing, and placed him on CPAP. denies any sick contacts. She denies him having nausea, vomiting, or
diarrhea. She does report that he is weak. Patient was found to be COVID-positive, febrile, and tachycardic. He has had all his COVID vaccinations.
#Sepsis
#Acute coronavirus pneumonia
#Concern for bacterial pneumonia
Urine Legionella antigen negative, strep antigen negative, MRSA negative. Blood cultures negative to date
Appreciate ID and emergency communications dispatcher input. Status post vancomycin and cefepime, followed by Rocephin/azithromycin, now off abx
Continue dexamethasone/remdesivir day 3
Continue pulmonary toileting
#Non-ST elevation myocardial infarction
Troponin peaked at 20.6, trending down.
Echo ejection fraction 45 to 50% by visual
assessment, 48% by volumetric assessment. Hypokinesis of the mid to apical
anteroseptal and anterior wall.
Appreciate cardiology input, continue aspirin, statin, metoprolol, IV heparin drip
Resume low-dose YAO inhibitor 02/28
#Flash pulmonary edema
Status post Lasix 40 mg IV in the ED
Appreciate cardiology input, s/p IV Lasix, monitor daily weights, monitor creatinine
#Acute hypoxic respiratory failure
Patient initially requiring high flow, now on room air
#Diabetic ketoacidosis
#Type 2 diabetes
Appreciate emergency communications dispatcher input, gap closed s/p insulin drip
Appreciate diabetes nurse practitioner, metformin, Januvia, glimepiride resumed, continue sliding scale insulin
#Acute Metabolic Encephalopathy
#Unresponsiveness
Due to acute issues above, resolved, mentation back to baseline
#Sinus tachycardia
Status post Cardizem in the ED
Continue metoprolol, treat underlying conditions as above
#Hypotension
Improved, hold Imdur
#History of lung cancer status post left pneumonectomy
Follows with Dr. Mota at [facility]
#Gastroesophageal reflux disease
Continue PPI
#Hyponatremia
Mild, monitor
DVT prophylaxis�subcu Lovenox
Full code
Updated at bedside 02/28
Total time spent to see the patient on the floor, examine the patient, review data and lab results, discuss treatment plan with patient, nursing staff around 51 minutes.
Physical Exam
General: Appears to not feel well, no acute distress
HEENT: Normocephalic, Atraumatic, EOMI, MMM
Respiratory: Coarse breath sounds with rhonchi
Cardiac: Normal S1/S2, Regular Rate and Rhythm
GI: Soft, Nontender, Nondistended, Normal Bowel Sounds
Extremities: No Clubbing, Cyanosis, or Edema
Neuro: Nonfocal/Grossly Intact
Psych: Calm, Cooperative
Derm: No Visible lesions
Anticipated Discharge: > 48 hours
Subjective/Interval History
-
Date of Service: February 29, 2024
Patient has a cough. Denies shortness of breath. He is having some left arm pain radiating to his chest. No fever, no vomiting.
Objective Data
-
Labs:
Laboratory Results
02/28/24 02/29/24 02/29/24
22:22 05:17 12:00
WBC 12.8 H
Hgb 10.5 L
Hct 31.2 L
Plt Count 318
APTT 66.8 H 98.6 H Pending
Sodium 135
Potassium 5.5 H
Chloride 104
Carbon Dioxide 25
BUN 25 H
Creatinine 0.5 L
Glucose 134 H
Calcium 9.2
Vital Signs:
Vital Signs
Temp Pulse Resp BP Pulse Ox
97.6 F 65 16 103/48 96
02/29/24 02:38 02/29/24 08:18 02/29/24 06:00 02/29/24 08:18 02/29/24 08:18
I&O
02/28/24 02/29/24 03/01/24
06:59 06:59 06:59
Intake Total 1220 / 1231 1482 / 1482
Output Total 1350 / 1350 1100 / 1100 350 / 350
Balance -130 / -119 382 / 382 -322 / -322
[2024-02-29] MEDS: GLUCOPHAGE 1000 MG PO (08:42)
[2024-02-29] MEDS: NOVOLOG FLEXPEN-HIGH RESISTANCE 1 UNITS SC ×2 (08:42→17:16)
--- NOTE | 2024-02-29 09:30 | PTCARENOTE ---
patient c/o of left chest pain. Unable to grade nor describe pain. EKG done. After EKG completed on re-assessment of pain , patient denies pain at this time
--- NOTE | 2024-02-29 10:46 | PN.CDI ---
CDI
- -
CDI:
Physician Documentation Request
Admit Date: 02/27/24 11:42
Dear Doctor Do,
Clinical Indicators:
Patient admitted with Sepsis, Acute Hypoxic Respiratory Failure and DKA
02/26 H & P, '...presents with acute onset of shortness of breath with unresponsiveness this morning. Patient's came home from work, and found him short of breath and unresponsive.'
Physical Exam: (Lethargic, somnolent)
Based on the above, could you clarify the most likely etiology of the altered mental status.
Acute Metabolic Encephalopathy
Somnolence only
Other, please specify
Use of terms such as suspected, likely, concern for, or probable (associated with a specific diagnosis that is being evaluated, monitored, or treated as if it exists) are acceptable and can be coded in the inpatient setting, when documented at the
time of discharge.
Thank you,
Dolores Kim RN BSN
CDI Specialist
available via tiger text
Please use your independent medical judgment in providing your response.
[2024-02-29 11:38] LABS: Glucose - Point of Care 133 mg/dl (70-99)
--- NOTE | 2024-02-29 11:47 | W.PN.UPDATE ---
Update Note
Progress Note Update
Updated patient and in room and they are both agreeable to cath today.
--- NOTE | 2024-02-29 11:55 | W.PN.ID1 ---
Date of Service
Date of Service: February 29, 2024
Today's Communication
DC ceftriaxone/azithro
Continue RemD
Assessment / Plan
# Severe COVID19 infection
# s/p Severe sepsis, hypotensive
hx COPD, Lung ca/left pneumonectomy
- Symptom onset 02/26.
- COVID ag + 02/26
- Acute hypoxic respiratory failure: improving
- Chest CT: severe interstitial and alveolar opacities
- Continue Remdesivir (day 3) for now
- On steroid
- Discontinue empiric ceftriaxone/azithromycin (d3)
- COVID isolation
- Trend wbc, fever, BP
# CAD
- troponin peaked 21.6
- EF decreased from 55-60% to 45-50%
- For cardiac cath today
# DM2 s/p DKA
# Conditions TYPE COPYIST
Diabetes mellitus type 2
COPD
Hypertension
Dyslipidemia
CAD status post PCI 2000 in [place]
PVD
Squamous cell left lung cancer dx 2019, chemoradiation/immunotherapy, status post left pneumonectomy 2021
Chief Complaint
-: Other (COVID)
Subjective / Review of Systems
Continues to feel better.
Vital Signs / Physical Exam
Vital Signs
Vital Signs
Temp Pulse Resp BP Pulse Ox
98.0 F 65 18 103/48 96
02/29/24 08:44 02/29/24 08:18 02/29/24 08:13 02/29/24 08:18 02/29/24 08:18
Physical Exam
Constitutional: No Acute Distress
Cardiovascular: Regular Rate and S1/S2
Pulmonary: Rales (right base)
Gastrointestinal: Soft, Non Tender and Non Distended
Neurological: AO x 3
Objective Data
Lab Data
Lab Results
02/29/24 05:17
02/29/24 05:17
PT Cancelled 02/28/24 06:00
INR Cancelled 02/28/24 06:00
APTT 98.6 Sec (23.4-35.0) H 02/29/24 05:17
Estimated Creat Clear 111 ml/min 02/29/24 05:17
Lactic Acid 1.0 mmol/L (0.7-2.0) 02/28/24 00:05
Total Bilirubin Cancelled 02/28/24 06:00
AST Cancelled 02/28/24 06:00
ALT Cancelled 02/28/24 06:00
Alkaline Phosphatase Cancelled 02/28/24 06:00
Most recent labs reviewed.
Micro Results:
02/27/24 09:46 Blood Culture - Preliminary
Blood/Venous No Growth in 48 hours- Final report to follow
02/27/24 14:36 Blood Culture - Preliminary
Blood/Venous No Growth in 24 hours- Final report to follow
02/27/24 10:25 Legionella Urinary Antigen - Final
Urine Negative for Legionella pneumophila Serogroup 1 antigen.
A negative result does not rule out the possiblity of
Legionella infection due to other serogroups or species of
Legionella. Clinical correlation is recommended.
Streptococcus pneumoniae Antigen (M - Final
Negative for Streptococcus pneumoniae antigen.
A negative result does not exclude infection with
Streptococcus pneumoniae. Clinical correlation is
recommended.
02/27/24 14:36 Nasal Screen MRSA (PCR) - Final
Nose MRSA not detected - performed by PCR methodology.
02/27/[address]: MODERATE ACUTE INTERSTITIAL and ALVEOLAR CARDIOGENIC PULMONARY EDEMA in the RIGHT LUNG.
2. Small right pleural effusion.
3. Small pericardial effusion.
4. Severe calcific atherosclerotic plaque in the coronary arteries and thoracic aorta.
5. Mild mediastinal and right hilar lymphadenopathy which appears new from 01/28/2020 (either reactive or metastatic in etiology).
6. PREVIOUS LEFT PNEUMONECTOMY with pleural thickening and complex pleural fluid opacifying the left hemithorax.
7. Large anterior vertebral body endplate osteophytes in the thoracic spine causing moderate compression on the posterior wall of the mid descending thoracic aorta.
[2024-02-29] MEDS: NOVOLOG FLEXPEN-HIGH RESISTANCE SC (12:21)
[2024-02-29] MEDS: DECADRON 6 MG IV (12:29)
[2024-02-29] MEDS: VEKLURY 250 MG IV (12:30)
[2024-02-29 13:02] LABS: APTT 54.7 Sec (23.4-35.0)
--- NOTE | 2024-02-29 13:02 | PTCARENOTE ---
patient in bed. NPO . Last meal this am around 9am. Heparin infusing at 1400/14ml via left AC #20 Remdizivir compatible with heparing . Infused per order . PTT and BMP send results pending
--- NOTE | 2024-02-29 13:03 | CM ---
CM following re: discharge planning.
Reviewed pt's chart. Per chart review, laboratory chemical assistant today, continue supportive care.
PT and OT evaluations noted- SNF level of care recommended. Pt's spouse is aware and she preferred to discuss discharge plan closer to discharge.
D/c plan: uncertain at this time and will depend on pt's progress. pt's spouse preferred home with VN and family support.
CM will follow with discharge plan updates as hospitalization progresses
[2024-02-29 13:30] LABS: Blood Urea Nitrogen 25 mg/dl (9-20); Calcium 9.2 mg/dl (8.4-10.2); Carbon Dioxide 23 mmol/L (22-30); Chloride 103 mmol/L (98-107); Estimated Creatinine Clearance 111 ml/min; Glucose 107 mg/dl (70-99); Potassium 4.5 mmol/L (3.5-5.1); Sodium 134 mmol/L (135-145); eGFR > 60.00
[2024-02-29] MEDS: NSS 30 IV (13:52)
[2024-02-29 14:51] LABS: ACT-LR - POC 258 Seconds (116-155)
--- NOTE | 2024-02-29 15:00 | PTCARENOTE ---
Patient taking to laborer cement gun placing for Left heart cath . Transfer via stretcher Report given to Nanci
--- NOTE | 2024-02-29 15:40 | ITS.CL.CATH ---
Occupational Therapist Assistants - Catheterization
Cardiac Catheterization
Procedure Report:
CARDIAC CATHETERIZATION REPORT
Date of Procedure: 02/29/2024
Referring: Guillermo Galeas MD
Indication: Post infarction angina in COVID-positive patient
�
HEMODYNAMIC DATA
AO: 103/59
LV: Not performed
�
LEFT VENTRICULOGRAPHY: Not performed
�
CORONARY ANGIOGRAPHY
Dominance: Right
Left Main: Normal
LAD: There is severe calcification of the proximal to mid LAD. There is a long area of severe disease to 95% involving the proximal and mid LAD. The remainder of the LAD system has mild luminal disease
Circumflex: 60% stenosis in the circumflex extending into the very large second obtuse marginal branch. The first obtuse marginal branch is small. The circumflex terminates with a small third obtuse marginal branch.
RCA: Dominant severely calcified vessel with multiple areas of mild luminal irregularities
Angioplasty: At the conclusion of the diagnostic study, the patient underwent immediate LAD intervention for postinfarction angina. Aspirin 324 mg was chewed on the table as he had only been given 81 mg of aspirin twice during this hospital stay.
Double bolus Integrilin without infusion was given. Brilinta 180 mg was administered at the procedure conclusion. A 6 Cymraes EBU 3.75 guide catheter was used. A BMW wire was advanced into the distal LAD. Direct stenting was accomplished with a
3.5 x 34 Pito frontier KIMMIE deployed at 18 aramis. We were unable to completely eliminate the waist in the balloon at 2 sites within the stented segment. Aggressive postdilatation with a 3.5 x 20 NC Euphora was accomplished to 23 aramis but still did not
result in complete balloon expansion at either of the sites. Due to the presence of underexpansion of the stent, we made a decision to perform shockwave IV L. A 3.5 x 12 shockwave balloon was advanced to the more distal area of mal expansion and 6
treatments were performed at this location with slight changes in the balloon position. The proximal area of mal expansion was treated with 6 cycles of 10 pulses as well. Postdilatation was then again performed with a 3.5 x 20 NC Emerge with
marked improvement including complete stent expansion in the more proximal zone and improved but less than complete expansion at the distal location despite postdilatation to 22 aramis.
�
Closure Device: None-the procedure was performed via the right radial artery. The Basilio's test was normal prior to the procedure.
�
Radiation (mGy): 770
DAP (cm2.Gy): 49.8
Fluoroscopy time: 19.1 minutes
�
CONCLUSIONS
1:�Postinfarction angina presentation
2:�Severe multivessel CAD as described
3. Successful stenting of long area of severe proximal and mid LAD disease with placement of 3.5 x 34 Pito KIMMIE. Shockwave IVL was needed post stent placment to maximize stent expansion
4. Recommend uninterrupted dual antiplatelet therapy for minimum 12 months and aggressive risk factor modification efforts. We will add lipid profile to a.m. labs as this has not been done
�
�
Copy to: Guillermo Evans MD, Petar Guzman MD
�
Enrike Villeda MD, [facility], [facility]
--- NOTE | 2024-02-29 16:13 | SUR.OPER ---
16:10 patient received back from analytical lab technician . RT wrist radial band in place BP 106/70 SR 74; RR 17; 97RA BP via left upper arm . patient denies pain . or discomfort . Denies chest discomfort, no nausea. Heparin qtt on hold
[2024-02-29 16:20] LABS: Glucose - Point of Care 112 mg/dl (70-99)
[2024-02-29] MEDS: CRESTOR 20 MG PO (17:15)
[2024-02-29] MEDS: ZESTRIL 5 MG PO (17:16)
[2024-02-29] MEDS: ASPIR LOW (ENTERIC COATED) 81 MG PO (18:21)
--- NOTE | 2024-02-29 18:26 | PTCARENOTE ---
Addendum entered by Ashleigh Hoang RN 02/29/24 18:36:
note written on wrong pt
Original Note:
patient transfer around 17:00 Transfer via w/c Report given prior to transfer at the bedside
--- NOTE | 2024-02-29 19:00 | PTCARENOTE ---
patient in bed Denies chest pain . RT radial band 3ml been taking out per current order no s/s of bleeding noted
--- NOTE | 2024-02-29 20:30 | PTCARENOTE ---
pt recd. assessment as documented. air removed from TR band around 1930, went in around 2019 to remove TR band, pt had removed TR band and placed it on table. radial pulse assessed, no bleeding or hematoma noted, gauze and tegaderm applied to site.
SR on monitor, on RA, denies SOB. urinal at bedside. call riddle within reach. IVU status.
--- NOTE | 2024-02-29 23:02 | PTCARENOTE ---
patient attempting to get OOB, took off monitor/BP/pulseox, pulled out PIV. assisted back to bed, attempted to restart PIV, unsuccessful. VAT paged.
[2024-03-01] VITALS (16 sets, daily range): BP systolic 101–174; BP diastolic 57–99; BMI 27.3; BMI 27.5
[2024-03-01] MEDS: NITROSTAT (SUBLINGUAL) 0.4 MG SL ×2 (00:06→00:19)
--- NOTE | 2024-03-01 01:13 | PTCARENOTE ---
0000- pt restless, attempting to get OOB, yelling at staff. pt diaphoretic, BP elevated. c/o chest pain at this time. nitro x2, EKG done, house DRY TALC RACKER made aware - no new EKG changes per DRY TALC RACKER. pt refusing blood sugar check. certified court/medical interpreter used, informed this
RN and [place] DRY TALC RACKER that he was confused and told her he was 'kidnapped'. contacted to speak with patient and redirect. pt hung up on , now coming to bedside per security. no other orders at this time.
--- NOTE | 2024-03-01 01:36 | PTCARENOTE ---
at bedside, updated on events overnight.
[2024-03-01] MEDS: LOPRESSOR 50 MG PO (05:43)
--- NOTE | 2024-03-01 06:01 | PTCARENOTE ---
pt more settled this morning, denies CP. AM labs sent. 2L NC applied for comfort per pt request. linens changed. bed alarm on, call riddle within reach.
[2024-03-01 06:04] LABS: Hemoglobin 11.4 g/dL (13.0-18.0); Mean Corp Hgb Conc. 33.5 g/dL (33.0-37.0); Mean Corpuscular Hgb 26.1 pg (27.0-31.0); Mean Platelet Volume 9.6 fL (7.4-10.4); Platelet Count 330 10^3/uL (130-400); Red Blood Cell Count 4.36 10^6/uL (4.70-6.10); Red Cell Dist. Width 16.4 % (11.5-14.5); White Blood Cell Count 11.2 10^3/uL (4.8-10.8)
[2024-03-01 06:22] LABS: Blood Urea Nitrogen 21 mg/dl (9-20); Calcium 8.8 mg/dl (8.4-10.2); Carbon Dioxide 23 mmol/L (22-30); Chloride 104 mmol/L (98-107); Estimated Creatinine Clearance 111 ml/min; Glucose 234 mg/dl (70-99); Magnesium 1.7 mg/dl (1.6-2.3); Phosphorus 3.1 mg/dl (2.5-4.5); Potassium 4.6 mmol/L (3.5-5.1); Sodium 133 mmol/L (135-145); eGFR > 60.00
[2024-03-01 07:49] LABS: Glucose - Point of Care 214 mg/dl (70-99)
[2024-03-01] MEDS: NOVOLOG FLEXPEN-HIGH RESISTANCE 4 UNITS SC (08:13)
[2024-03-01] MEDS: ZESTRIL 5 MG PO (08:14)
[2024-03-01] MEDS: PROTONIX 40 MG PO (08:14)
[2024-03-01] MEDS: MUCINEX 600 MG PO ×2 (08:14→20:03)
[2024-03-01] MEDS: AMARYL 4 MG PO ×2 (08:14→17:24)
[2024-03-01] MEDS: JANUVIA 100 MG PO (08:14)
[2024-03-01] MEDS: PLAVIX 600 MG PO (08:20)
--- NOTE | 2024-03-01 08:30 | W.PN.CARDCBS ---
Addendum entered and electronically signed by Mony Quintanilla DO 03/01/24 10:20:
I saw and examined the patient.
The Coal Shooter's note was reviewed and I agree with the note.
Comment: Patient seen and examined with at bedside. Translation provided through . Overnight events reviewed. Patient denies chest pain or pressure, shortness of breath, or dizziness. Per nursing he is unsteady on his feet and they are
awaiting PT to reevaluate this morning.
General: No acute distress, AAOX3
Neck: Negative JVD
Heart: Regular, positive S1/S2, no murmur
Lungs: CTA b/l, negative wheezes/rales/rhonchi
Abd: Positive BS, NT/ND, neg rebound/rigidity/guarding
Ext: No edema. Right radial site without ecchymosis. +2 radial pulse.
Plan:
-From a cardiac standpoint, he's been pain free since LAD PCI 02/29/24
-Outpatient dose of aspirin continued and he is new to Plavix 75 mg daily.
-Troponin peaked at 20.6 and EF down to 45% by echo 02/28/24.
-Change outpatient dose of Lopressor to Toprol XL 25 mg daily. Uptitrate as an outpatient as BP tolerates.
-Restart outpatient dose of lisinopril at 5 mg daily.
-Outpatient dose of Imdur ER 30 mg daily on hold due to hypotension, will not restart at this time as it had only recently been started for chest pain in the weeks prior to this admission.
-LDL 52 and outpatient dose of fluvastatin 80 mg daily will be resumed upon d/c
-Eventual cardiac rehab once he has recovered from COVID
COVID positive now on room air
-Afebrile since 02/27/24. Decadron and Remdesivir ordered
Agitation overnight with nursing noting unsteady gait
-Await PT evaluation to determine safety for discharge, home with home PT versus SNF
-Stable for d/c from a cardiac standpoint and follow up arranged
-Will sign off, recall if needed
Original Note:
Today's Communication / Plan
-
Cont aspirin and Plavix
Change Lopressor to Toprol XL
Restart lisinopril
Stop Imdur ER
Needs PT/OT evals today to determine if rehab is still indicated
Impression / Plan
-
PCP: Eduardo Fofana
Yard Warehouse Worker: Jayson Ornelas
Impression:
Presented with acute shortness of breath followed by period of unresponsiveness 02/27/2024
Acute hypoxic respiratory failure secondary to COVID-19
Febrile COVID + / Leukocytosis
DKA / Metabolic acidosis with anion gap
Acute HF with mildly reduced EF
Newly diagnosed ischemic CM EF 45% by echo 02/28/24:
NSTEMI, peak Troponin 20.6
CAD
h/o PCI unknown vessel in 2000
s/p 3.5 mm Kevin KIMMIE to mid LAD 02/29/24
Tachycardia
PVD
Hypertension
Hyperlipidemia
COPD
Lung cancer s/p Left pneumonectomy 2021, chemo/XRT/Immunotherapy ([facility])
Type 2 diabetes
Suspected cognitive impairment
Lexiscan nuclear stress test 01/27/2024: Large in size, moderate in severity partially reversible anterior, apical and inferior defect. Defect does not get better with proning suggesting coronary artery disease. EF 50%
Lexiscan stress test August 2021: Normal perfusion with a EF 68%
Echo August 2021: EF 60% with no significant valvular disease
ECHO 01/24/2024: EF 55 to 60%. No significant valvular disease
Echo 02/28/2024: Limited study, EF 45 to 50%, hypokinesis of the mid to apical anteroseptal and anterior wall, this is new compared to echo 01/24/2024
Plan:
-Overnight events noted, patient was agitated and confused, but seemed to improve once his was bedside. Suspect this was related to sedation, baseline mild cognitive impairment and language barrier. No focal symptoms.
-PT eval from 02/28/24 noted and rehab was recommended at that time, but no repeat eval 02/29/24 due to cath. PT/OT to see 03/01/24 and then decide on whether or not rehab stay is needed.
-From a cardiac standpoint, he's been pain free since LAD PCI 02/29/24
-Outpatient dose of aspirin continued and he is new to Plavix 75 mg daily.
-Troponin peaked at 20.6 and EF down to 45% by echo 02/28/24.
-Change outpatient dose of Lopressor to Toprol XL 25 mg daily. Uptitrate as an outpatient as BP tolerates.
-Restart outpatient dose of lisinopril at 5 mg daily.
-Outpatient dose of Imdur ER 30 mg daily on hold due to hypotension, will not restart at this time as it had only recently been started for chest pain in the weeks prior to this admission.
-LDL 52 and outpatient dose of fluvastatin 80 mg daily will be resumed upon d/c
-Afebrile since 02/27/24. Decadron and Remdesivir ordered
-Stable for d/c from a cardiac standpoint and follow up arranged
HPI 02/27/2024: Patient is a 68-year-old Azeri speaking male with past medical history significant for coronary artery disease with remote PCI in 2000 in [place], nonobstructive PVD, hypertension, hyperlipidemia, type 2 diabetes, former tobacco
abuse with COPD and lung cancer status past left pneumonectomy 2021 with chemo/immunotherapy and radiation who presents 02/27/2024 to emergency department via EMS with an episode of shortness of breath followed by unresponsiveness. Episode was
witnessed by his . Patient was placed on BiPAP by EMS. On presentation to emergency department he was noted to have a fever of 102.8. White count 19.3, lactic acid 4.1. Chest x-ray showed acute interstitial pulmonary edema in the right lung.
Chest CTA confirmed moderate interstitial pulmonary edema with small right pleural effusion, small pericardial effusion and severe calcified atherosclerotic plaque in coronary arteries and thoracic aorta. There was mild mediastinal and right hilar
lymphadenopathy. proBNP 1620. Patient was provided 40 mg IV Lasix. Initial EKG showing tachycardia and was provided IV diltiazem bolus. Repeat EKG sinus tachycardia. Initial troponin 0.039. proBNP 1620. Patient COVID-positive. Started on
empiric IV antibiotics and IV steroids. Patient also noted to have metabolic acidosis with hyperglycemia and anion gap concerning for possible DKA. Of note patient was seen by Dr. Ornelas in outpatient cardiology office in December 2023 with complaints
of intermittent chest pain. He underwent outpatient echocardiogram in January 2024 which showed preserved ejection fraction and no significant valvular disease. He also had a Lexiscan nuclear stress test which showed moderate partial reversible
anterior, apical and inferior defect suggestive of coronary artery disease. There was ongoing discussion with patient regarding proceeding with cardiac catheterization however patient decided against undergoing any procedure and Imdur 30 mg was
added.
History is provided by patient's as patient is primarily Azeri speaking and has some altered mental status/lethargy.
Progress Note - Yard Warehouse Worker
Subjective
Date of Service: March 01, 2024
He feels better, he had a rough night feeling confused and having trouble with language line, but once his came to stay with him overnight he felt better
Objective
Labs:
03/01/24 05:52
03/01/24 05:52
Labs
Hgb 11.4 g/dL (13.0-18.0) L 03/01/24 05:52
Hct 34.0 % (39.0-52.0) L 03/01/24 05:52
Plt Count 330 10^3/uL (130-400) 03/01/24 05:52
PT Cancelled 02/28/24 06:00
INR Cancelled 02/28/24 06:00
APTT Cancelled 02/29/24 20:00
APTT Cancelled 02/29/24 20:00
Sodium 133 mmol/L (135-145) L 03/01/24 05:52
Potassium 4.6 mmol/L (3.5-5.1) 03/01/24 05:52
BUN 21 mg/dl (9-20) H 03/01/24 05:52
Creatinine 0.5 mg/dL (0.7-1.3) L 03/01/24 05:52
Glucose 234 mg/dl (70-99) H 03/01/24 05:52
Troponins
02/27/24 02/27/24 02/28/24
09:20 17:48 00:05
Troponin I 0.039 H* 20.400 H* Cancelled
02/28/24 02/28/24
01:13 06:11
Troponin I 20.600 H* 17.500 H*
Vital Signs and I&O:
Vital Signs
Temp Pulse Resp BP Pulse Ox
98.1 F 75 11 107/68 100
03/01/24 04:05 03/01/24 08:14 03/01/24 06:00 03/01/24 08:14 03/01/24 06:02
Vital Signs
Temp Pulse Resp BP Pulse Ox
98.1 F 75 11 107/68 100
03/01/24 04:05 03/01/24 08:14 03/01/24 06:00 03/01/24 08:14 03/01/24 06:02
Intake & Output
02/28/24 02/29/24 03/01/24 03/02/24
06:59 06:59 06:59 06:59
Intake Total 1220 / 1231 1482 / 1482 748 / 748
Output Total 1350 / 1350 1100 / 1100 1760 / 1760
Balance -130 / -119 382 / 382 -1012 / -1012
Physical Exam
Physical Exam
General: NAD, AAOX3
HEENT: MMM
Heart: SR on tele
Lungs: No BS on left. Coarse BS throughout right side, no wheeze
Abd: ND
Ext: No edema B/L
Neuro: nonfocal
--- NOTE | 2024-03-01 08:33 | PTCARENOTE ---
Rec'd care of patient at 0700. Patient almost back to baseline orientation. Slightly confused/forgetful at times. Pleasant and cooperative. NSR/SB on tele monitor. Pulse ox 100% on RA. Lung sounds coarse/diminished throughout right lung. Absent on
left. +BS. Voiding via urinal. Right wrist with dressing c/d/i. Neurovascular check benign. Right forearm INT capped. VSS. at bedside.
--- NOTE | 2024-03-01 08:34 | PN.DE.MGMTRT ---
Insulin Management
- -
03/01/2024 Diabetes Management Consult Follow up
Patient admitted 02/26 with episode of unresponsiveness. Patient found by unresponsive, gave rescue breaths, called ambulance. Patient is COVID + with pulmonary edema. PMH 2019 lung CA(s/p L pneumonectomy), HTN, CAD with stent, type 2 diabetes.
Prior to admission was taking glimepiride 4 mg BID with metformin 1000 BID and Januvia 100 mg daily.
A1C 7.2, cr .5, eGFR >60
02/27 Diet started with lunch, 1800 calorie. PO diabetes medications, Januvia 100mg daily,and metformin 1000 mg BID both given. Glimepiride 4 mg BID started with dinner. Patient had cardiac cath 02/28, stented, metformin being held. Diet changed
to cholesterol lowering, will add 1800 calorie.
Glucose trended up this AM 234, most likely due to more liberal diet. Will continue Januvia, and glimepiride with corrective insulin today and assess for needed changes to regimen. Will discuss adding Jardiance or Farxiga whichever is covered, in
light of recent ID. Discussed this with patients , she feels it is too expensive but will talk to patient about starting Farxiga. CM offered Free coupon for 1 month.
Patient currently receiving Dexamethasone 6 mg IV Q 24 hours and high resistance corrective insulin Will follow.
Diabetes History
- -
Type of Diabetes: 2
Pre-Admission Diabetes Regimen
02/29/24 03/01/24
12:52 05:52
Creatinine 0.5 L 0.5 L
Lab Results
Hemoglobin A1c Cancelled 02/27/24 20:00
Insulin Pump Settings
IP Diabetes Regimen
02/29/24 02/29/24 02/29/24
11:19 12:52 16:09
Glucose 107 H
POC Glucose 133 H 112 H
03/01/24 03/01/24
05:52 07:37
Glucose 234 H
POC Glucose 214 H
Meal type: Breakfast
Amount consumed: 100%
Patient Education
[2024-03-01 08:42] LABS: HDL Cholesterol 25 mg/dl; LDL Cholesterol, Calculated 52 mg/dl; Total Cholesterol 90 mg/dl (50-199); Triglyceride 67 mg/dl (10-149); Very Low Density Lipoprotein 13 mg/dl (0-30)
--- NOTE | 2024-03-01 08:56 | W.PN.HOSP.TC ---
Today's Communication/Plan
-
Stable for telemetry
Assessment / Plan
Assessment / Plan
HPI: 68-year-old male with a past medical history of lung cancer status post left pneumonectomy, CAD, HTN, HL, PVD, COPD, and DM2 presents with acute onset of shortness of breath with unresponsiveness this morning. Patient's came home from
work, and found him short of breath and unresponsive. She opened his mouth, and gave him rescue breaths. Medics found him agonal breathing, and placed him on CPAP. denies any sick contacts. She denies him having nausea, vomiting, or
diarrhea. She does report that he is weak. Patient was found to be COVID-positive, febrile, and tachycardic. He has had all his COVID vaccinations.
#Sepsis
#Acute coronavirus pneumonia
#Concern for bacterial pneumonia
Urine Legionella antigen negative, strep antigen negative, MRSA negative. Blood cultures negative to date
Appreciate ID and artificial snow making machine operator input. Status post vancomycin and cefepime, followed by Rocephin/azithromycin, now off abx
Status post 3 days of remdesivir, 4 days of IV dexamethasone, will discontinue
Patient initially requiring high flow, now on room air
Continue pulmonary toileting
PT rec HH
#Non-ST elevation myocardial infarction
Troponin peaked at 20.6, trending down.
Echo ejection fraction 45 to 50% by visual
assessment, 48% by volumetric assessment. Hypokinesis of the mid to apical
anteroseptal and anterior wall.
Appreciate cardiology input, status post cardiac catheterization 03/01 showing multivessel CAD with stent placement
Continue aspirin/plavix x 12 months, statin, metoprolol
Resumed low-dose YAO inhibitor 02/28
#Flash pulmonary edema
Status post Lasix 40 mg IV in the ED
Appreciate cardiology input, s/p IV Lasix, monitor daily weights, monitor creatinine
#Acute hypoxic respiratory failure
Patient initially requiring high flow, now on room air
#Diabetic ketoacidosis
#Type 2 diabetes
Appreciate artificial snow making machine operator input, gap closed s/p insulin drip
Appreciate diabetes nurse practitioner, william, glimepiride resumed, continue sliding scale insulin
Holding metformin secondary to cardiac catheterization, can resume 03/04
#Acute Metabolic Encephalopathy
#Unresponsiveness
Monitor
#Hyperkalemia
Resolved status post Lokelma
#Sinus tachycardia
Status post Cardizem in the ED
Continue metoprolol, treat underlying conditions as above
#Hypotension
Improved, hold Imdur
#History of lung cancer status post left pneumonectomy
Follows with Dr. Mota at [facility]
#Gastroesophageal reflux disease
Continue PPI
#Hyponatremia
Mild, monitor
DVT prophylaxis�subcu Lovenox
Full code
Updated at bedside 03/01
Total time spent to see the patient on the floor, examine the patient, review data and lab results, discuss treatment plan with patient, nursing staff around 50 minutes.
Physical Exam
General: Appears to not feel well, no acute distress
HEENT: Normocephalic, Atraumatic, EOMI, MMM
Respiratory: Coarse breath sounds with rhonchi
Cardiac: Normal S1/S2, Regular Rate and Rhythm
GI: Soft, Nontender, Nondistended, Normal Bowel Sounds
Extremities: No Clubbing, Cyanosis, or Edema
Neuro: Nonfocal/Grossly Intact
Psych: Calm, Cooperative
Derm: No Visible lesions
Anticipated Discharge: 24 - 48 hours
Subjective/Interval History
-
Date of Service: February 29, 2024
Patient's left arm pain and chest pain is resolved. No fever, no vomiting.
Objective Data
-
Labs:
Laboratory Results
02/29/24 02/29/24 02/29/24
05:17 12:19 12:52
WBC 12.8 H
Hgb 10.5 L
Hct 31.2 L
Plt Count 318
APTT 98.6 H 54.7 H
Sodium 135 134 L
Potassium 5.5 H 4.5
Chloride 104 103
Carbon Dioxide 25 23
BUN 25 H 25 H
Creatinine 0.5 L 0.5 L
Glucose 134 H 107 H
Calcium 9.2 9.2
02/29/24
20:00
WBC
Hgb
Hct
Plt Count
APTT Pending
Sodium
Potassium
Chloride
Carbon Dioxide
BUN
Creatinine
Glucose
Calcium
Vital Signs:
Vital Signs
Temp Pulse Resp BP Pulse Ox
98.0 F 80 20 105/69 97
02/29/24 08:44 02/29/24 13:00 02/29/24 13:00 02/29/24 13:00 02/29/24 13:00
I&O
02/28/24 02/29/24 03/01/24
06:59 06:59 06:59
Intake Total 1220 / 1231 1482 / 1482
Output Total 1350 / 1350 1100 / 1100 350 / 350
Balance -130 / -119 382 / 382 -322 / -322
--- NOTE | 2024-03-01 08:59 | W.PN.ID1 ---
Date of Service
Date of Service: March 01, 2024
Today's Communication
DC further Remdesivir
Continue COVID isolation through 03/08/24.
Assessment / Plan
# Angina/CAD
# Acute CHF
- 02/29/24 cardiac cath: severe multivessel CAD s/p stent to LAD
# Mild to Moderate COVID19 infection
# Fever -resolved
# Leukocytosis resolving
- Suspect recent severe signs and sxs from cardiogenic rather than severe COVID
- COVID ag + 02/26
- s/p 3d Remdesivir - sufficient
DC further Remdesivir
-Continue COVID isolation through 03/08/24.
# DM2 s/p DKA
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
Diabetes mellitus type 2
COPD
Hypertension
Dyslipidemia
CAD status post PCI 2000 in [place]
PVD
Squamous cell left lung cancer dx 2019, chemoradiation/immunotherapy, status post left pneumonectomy 2021
Chief Complaint
-: Other (COVID)
Subjective / Review of Systems
Was agitated last night after cardiac cath.
Better today. No cough/SOB.
Vital Signs / Physical Exam
Vital Signs
Vital Signs
Temp Pulse Resp BP Pulse Ox
98.1 F 75 14 107/68 100
03/01/24 04:05 03/01/24 08:14 03/01/24 08:00 03/01/24 08:14 03/01/24 08:00
Physical Exam
Constitutional: No Acute Distress
Cardiovascular: Regular Rate and S1/S2
Pulmonary: Clear (anteriorly)
Gastrointestinal: Soft, Non Tender, Non Distended and Normal Bowel Sounds
Extremities: Negative Edema
Objective Data
Lab Data
Lab Results
03/01/24 05:52
03/01/24 05:52
PT Cancelled 02/28/24 06:00
INR Cancelled 02/28/24 06:00
APTT Cancelled 02/29/24 20:00
APTT Cancelled 02/29/24 20:00
Estimated Creat Clear 111 ml/min 03/01/24 05:52
Lactic Acid 1.0 mmol/L (0.7-2.0) 02/28/24 00:05
Total Bilirubin Cancelled 02/28/24 06:00
AST Cancelled 02/28/24 06:00
ALT Cancelled 02/28/24 06:00
Alkaline Phosphatase Cancelled 02/28/24 06:00
Most recent labs reviewed.
Micro Results:
02/27/24 14:36 Blood Culture - Preliminary
Blood/Venous No Growth in 48 hours- Final report to follow
02/27/24 09:46 Blood Culture - Preliminary
Blood/Venous No Growth in 48 hours- Final report to follow
02/27/24 10:25 Legionella Urinary Antigen - Final
Urine Negative for Legionella pneumophila Serogroup 1 antigen.
A negative result does not rule out the possiblity of
Legionella infection due to other serogroups or species of
Legionella. Clinical correlation is recommended.
Streptococcus pneumoniae Antigen (M - Final
Negative for Streptococcus pneumoniae antigen.
A negative result does not exclude infection with
Streptococcus pneumoniae. Clinical correlation is
recommended.
02/27/24 14:36 Nasal Screen MRSA (PCR) - Final
Nose MRSA not detected - performed by PCR methodology.
02/27/[address]: MODERATE ACUTE INTERSTITIAL and ALVEOLAR CARDIOGENIC PULMONARY EDEMA in the RIGHT LUNG.
2. Small right pleural effusion.
3. Small pericardial effusion.
4. Severe calcific atherosclerotic plaque in the coronary arteries and thoracic aorta.
5. Mild mediastinal and right hilar lymphadenopathy which appears new from 01/28/2020 (either reactive or metastatic in etiology).
6. PREVIOUS LEFT PNEUMONECTOMY with pleural thickening and complex pleural fluid opacifying the left hemithorax.
7. Large anterior vertebral body endplate osteophytes in the thoracic spine causing moderate compression on the posterior wall of the mid descending thoracic aorta.
--- NOTE | 2024-03-01 10:05 | W.CARD.POSTP ---
Post PCI Follow Up
Procedure
Procedure/Date: 02/29/24
CONCLUSIONS
1:�Postinfarction angina presentation
2:�Severe multivessel CAD as described
3. Successful stenting of long area of severe proximal and mid LAD disease with placement of 3.5 x 34 [place] KIMMIE. Shockwave IVL was needed post stent placment to maximize stent expansion
4. Recommend uninterrupted dual antiplatelet therapy for minimum 12 months and aggressive risk factor modification efforts. We will add lipid profile to a.m. labs as this has not been done
�
Subjective: no cp, sob
Site
Site: Radial: Right and No ht/bleeding, distal pulses palpable
Tele / EKG
SR no significant ST change
Labs
03/01/24 05:52
03/01/24 05:52
PT Cancelled 02/28/24 06:00
INR Cancelled 02/28/24 06:00
APTT Cancelled 02/29/24 20:00
APTT Cancelled 02/29/24 20:00
Magnesium 1.7 mg/dl (1.6-2.3) 03/01/24 05:52
Triglycerides 67 mg/dl (10-149) 03/01/24 05:52
LDL Cholesterol, Calc 52 mg/dl 03/01/24 05:52
VLDL Cholesterol, Calc 13 mg/dl (0-30) 03/01/24 05:52
HDL Cholesterol 25 mg/dl 03/01/24 05:52
02/27/24
09:20
[id number] Pept 1620
DAPT Medication
DAPT Medication: Aspirin 81mg daily and Clopidogrel 75 mg daily
Case Management checking tamez: Yes (unable to afford Brilinta too expensive)
Plan
Post PCI LAD with lithotripsy
DAPT ASA/Plavix
Stop Isosorbide
Hold Metformin post procedure 48 hours
--- NOTE | 2024-03-01 11:03 | PTCARENOTE ---
PT/OT at bedside. Patient assist x1 with RW oob to chair.
[2024-03-01 12:02] LABS: Glucose - Point of Care 189 mg/dl (70-99)
[2024-03-01] MEDS: NOVOLOG FLEXPEN-HIGH RESISTANCE 2 UNITS SC (12:14)
[2024-03-01] MEDS: DECADRON 6 MG IV (12:14)
--- NOTE | 2024-03-01 12:20 | CM ---
CM following re: discharger planning.
Discussed in rounds, reviewed pt's chart, met with pt and pt's spouse at bedside.
Updated PT and OT evaluations noted - pt has been improved significantly and home PT/OT recommended. Both pt and his spouse are aware, expressed their agreement. Pt stated he will never go to a SNF even it recommended. Pt's spouse supports pt's
plan.
A list of VN vendors provided, [facility] preferred. A referral to [facility] made.
D/C plan: home with [facility] and family support. Spouse to transport at discharge.
CM will follow with discharge plan updates as needed.
[2024-03-01 12:51] LABS: ACT-LR - POC > 397 Seconds (116-155)
--- NOTE | 2024-03-01 15:20 | PTCARENOTE ---
Patient downgraded to telemetry level.
[2024-03-01] MEDS: TOPROL XL 50 MG PO (15:44)
[2024-03-01] MEDS: LOVENOX 40 MG SC (17:24)
[2024-03-01] MEDS: ASPIR LOW (ENTERIC COATED) 81 MG PO (17:24)
[2024-03-01] MEDS: CRESTOR 20 MG PO (17:24)
[2024-03-01] MEDS: NOVOLOG FLEXPEN-HIGH RESISTANCE 7 UNITS SC (17:25)
[2024-03-01 17:36] LABS: Glucose - Point of Care 286 mg/dl (70-99)
[2024-03-01 21:43] LABS: Glucose - Point of Care 305 mg/dl (70-99)
[2024-03-01] MEDS: NOVOLOG FLEXPEN 10 UNITS SC (22:11)
[2024-03-02 00:16] LABS: Glucose - Point of Care 258 mg/dl (70-99)
[2024-03-02 03:35] VITALS: BP 96/44
[2024-03-02 06:00] VITALS: BMI 27.6
--- NOTE | 2024-03-02 07:33 | PN.DE.MGMTRT ---
Insulin Management
- -
03/02/2024 Diabetes Management Consult Follow up
Patient admitted 02/26 with episode of unresponsiveness. Patient found by unresponsive, gave rescue breaths, called ambulance. Patient is COVID + with pulmonary edema. PMH 2019 lung CA(s/p L pneumonectomy), HTN, CAD with stent, type 2 diabetes.
Prior to admission was taking glimepiride 4 mg BID with metformin 1000 BID and Januvia 100 mg daily.
A1C 7.2, cr .5, eGFR >60
02/27 Diet started with lunch, 1800 calorie. PO diabetes medications, Januvia 100mg daily,and metformin 1000 mg BID both given. Glimepiride 4 mg BID started with dinner. Patient had cardiac cath 02/28, stented, metformin being held. Diet changed
to cholesterol lowering, will add 1800 calorie.
03/02 Glucose range 03/01 189 to 305. Will continue Januvia, and glimepiride with corrective insulin today and assess for needed changes to regimen. Will discuss adding Jardiance or Farxiga whichever is covered, in light of recent [place]. Discussed
this with patients , she feels it is too expensive but will talk to patient about starting Farxiga. CM offered Free coupon for 1 month.
03/02 Again spoke to patient and , states they do not want SGLT2, too expensive. With glucose 305, will start lantus once now. Patient and refuse lantus at home.
Diabetes History
- -
Type of Diabetes: 2
Pre-Admission Diabetes Regimen
Lab Results
Hemoglobin A1c Cancelled 02/27/24 20:00
Insulin Pump Settings
IP Diabetes Regimen
03/01/24 03/01/24 03/01/24
07:37 11:50 17:23
POC Glucose 214 H 189 H 286 H
03/01/24 03/02/24
21:42 00:15
POC Glucose 305 H 258 H
Meal type: Dinner
Meal type: Lunch
Meal type: Breakfast
Amount consumed: 100%
Amount consumed: 100%
Amount consumed: 90%
Patient Education
[2024-03-02 08:01] LABS: Hematocrit 33.4 % (39.0-52.0); Hemoglobin 11.3 g/dL (13.0-18.0); Mean Corp Hgb Conc. 33.8 g/dL (33.0-37.0); Mean Corpuscular Hgb 25.3 pg (27.0-31.0); Mean Corpuscular Volume 74.9 fL (80.0-94.0); Mean Platelet Volume 9.6 fL (7.4-10.4); Platelet Count 335 10^3/uL (130-400); Red Blood Cell Count 4.46 10^6/uL (4.70-6.10); Red Cell Dist. Width 16.3 % (11.5-14.5); White Blood Cell Count 9.2 10^3/uL (4.8-10.8)
[2024-03-02] MEDS: PLAVIX 75 MG PO (08:05)
[2024-03-02] MEDS: JANUVIA 100 MG PO (08:05)
[2024-03-02] MEDS: PROTONIX 40 MG PO (08:05)
[2024-03-02] MEDS: MUCINEX 600 MG PO (08:05)
[2024-03-02] MEDS: AMARYL 4 MG PO (08:06)
[2024-03-02] MEDS: ZESTRIL 5 MG PO (08:12)
[2024-03-02] MEDS: TOPROL XL 50 MG PO (08:12)
[2024-03-02] MEDS: NOVOLOG FLEXPEN-HIGH RESISTANCE 2 UNITS SC (08:16)
[2024-03-02 08:17] LABS: Glucose - Point of Care 181 mg/dl (70-99)
[2024-03-02 08:28] VITALS: BP 134/71
[2024-03-02 08:35] LABS: Blood Urea Nitrogen 18 mg/dl (9-20); Calcium 8.9 mg/dl (8.4-10.2); Carbon Dioxide 21 mmol/L (22-30); Chloride 103 mmol/L (98-107); Estimated Creatinine Clearance 111 ml/min; Glucose 158 mg/dl (70-99); Potassium 4.2 mmol/L (3.5-5.1); Sodium 132 mmol/L (135-145); eGFR > 60.00
--- NOTE | 2024-03-02 08:47 | W.PN.HOSP.TC ---
Today's Communication/Plan
-
Discharge home today
Assessment / Plan
Assessment / Plan
HPI: 68-year-old male with a past medical history of lung cancer status post left pneumonectomy, CAD, HTN, HL, PVD, COPD, and DM2 presents with acute onset of shortness of breath with unresponsiveness this morning. Patient's came home from
work, and found him short of breath and unresponsive. She opened his mouth, and gave him rescue breaths. Medics found him agonal breathing, and placed him on CPAP. denies any sick contacts. She denies him having nausea, vomiting, or
diarrhea. She does report that he is weak. Patient was found to be COVID-positive, febrile, and tachycardic. He has had all his COVID vaccinations.
#Sepsis
#Acute coronavirus pneumonia
#Concern for bacterial pneumonia
Urine Legionella antigen negative, strep antigen negative, MRSA negative. Blood cultures negative to date
Appreciate ID and fire protection designer input. Status post vancomycin and cefepime, followed by Rocephin/azithromycin, now off abx
Status post 3 days of remdesivir, 4 days of IV dexamethasone, discontinued 03/01
Patient initially requiring high flow, now on room air
Continue pulmonary toileting
Medically stable for discharge, continue isolation through 03/07
PT rec HH. Follow-up with PCP in 1 week
#Non-ST elevation myocardial infarction
Troponin peaked at 20.6, trending down.
Echo ejection fraction 45 to 50% by visual
assessment, 48% by volumetric assessment. Hypokinesis of the mid to apical
anteroseptal and anterior wall.
Appreciate cardiology input, status post cardiac catheterization 03/01 showing multivessel CAD with stent placement
Continue aspirin/plavix x 12 months, statin, metoprolol
Resumed low-dose YAO inhibitor 02/28
Cleared by cardiology for discharge
#Flash pulmonary edema
Status post Lasix 40 mg IV in the ED
Appreciate cardiology input, s/p IV Lasix, monitor daily weights, monitor creatinine
#Acute hypoxic respiratory failure
Patient initially requiring high flow, now on room air
#Diabetic ketoacidosis
#Type 2 diabetes
Appreciate fire protection designer input, gap closed s/p insulin drip
Appreciate diabetes nurse practitioner, william, glimepiride resumed, continue sliding scale insulin
Holding metformin secondary to cardiac catheterization, can resume 03/03
#Acute Metabolic Encephalopathy
Unresponsiveness
Resolved, back to baseline per
#Hyperkalemia with
Resolved status post Lokelma
#Sinus tachycardia
Status post Cardizem in the ED
Resolved, continue metoprolol
#Hypotension
Improved, cardiology recommends stopping Imdur
#History of lung cancer status post left pneumonectomy
Follows with Dr. Mota at [facility]
#Gastroesophageal reflux disease
Continue PPI
#Hyponatremia
Mild, monitor
DVT prophylaxis�subcu Lovenox
Full code
Updated at bedside 03/02
Physical Exam
General: No acute distress
HEENT: Normocephalic, Atraumatic, EOMI, MMM
Respiratory: Coarse breath sounds with rhonchi
Cardiac: Normal S1/S2, Regular Rate and Rhythm
GI: Soft, Nontender, Nondistended, Normal Bowel Sounds
Extremities: No Clubbing, Cyanosis, or Edema
Neuro: Nonfocal/Grossly Intact
Psych: Calm, Cooperative
Derm: No Visible lesions
Anticipated Discharge: Today
Subjective/Interval History
-
Date of Service: March 02, 2024
Patient denies chest pain, denies shortness of breath. He continues to have a mild cough. No fever, no vomiting.
Objective Data
-
Labs:
Laboratory Results
03/02/24
07:18
WBC 9.2
Hgb 11.3 L
Hct 33.4 L
Plt Count 335
Sodium 132 L
Potassium 4.2
Chloride 103
Carbon Dioxide 21 L
BUN 18
Creatinine 0.5 L
Glucose 158 H
Calcium 8.9
Vital Signs:
Vital Signs
Temp Pulse Resp BP Pulse Ox
97.7 F 71 16 134/71 98
03/02/24 08:28 03/02/24 08:28 03/02/24 08:28 03/02/24 08:28 03/02/24 08:28
I&O
03/01/24 03/02/24 03/03/24
06:59 06:59 06:59
Intake Total 748 / 748 240 / 240
Output Total 1760 / 1760 1250 / 1250
Balance -1012 / -1012 -1010 / -1010
--- NOTE | 2024-03-02 09:14 | W.PN.ID1 ---
Date of Service
Date of Service: March 02, 2024
Today's Communication
Continue COVID isolation through 03/08/24.
ID signing off.
Assessment / Plan
# Post infarct Angina
# Acute CHF
- 02/29/24 cardiac cath: severe multivessel CAD s/p stent to LAD
# Mild to Moderate COVID19 infection
# Fever -resolved
# Leukocytosis resolved
- Suspect recent severe signs and sxs from cardiogenic rather than severe COVID
- COVID ag + 02/26
- Completed 3d Remdesivir -
-Continue COVID isolation through 03/08/24.
# DM2 s/p DKA
ID will sign off.
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
Diabetes mellitus type 2
COPD
Hypertension
Dyslipidemia
CAD status post PCI 2000 in [place]
PVD
Squamous cell left lung cancer dx 2019, chemoradiation/immunotherapy, status post left pneumonectomy 2021
Chief Complaint
-: Other (COVID)
Subjective / Review of Systems
Feels well.
Vital Signs / Physical Exam
Vital Signs
Vital Signs
Temp Pulse Resp BP Pulse Ox
97.7 F 71 16 134/71 98
03/02/24 08:28 03/02/24 08:28 03/02/24 08:28 03/02/24 08:28 03/02/24 08:28
Physical Exam
Constitutional: No Acute Distress
Cardiovascular: Regular Rate and S1/S2
Pulmonary: Clear (anteriorly)
Gastrointestinal: Soft, Non Tender, Non Distended and Normal Bowel Sounds
Neurological: AO x 3
Objective Data
Lab Data
Lab Results
03/02/24 07:18
03/02/24 07:18
PT Cancelled 02/28/24 06:00
INR Cancelled 02/28/24 06:00
APTT Cancelled 02/29/24 20:00
APTT Cancelled 02/29/24 20:00
Estimated Creat Clear 111 ml/min 03/02/24 07:18
Lactic Acid 1.0 mmol/L (0.7-2.0) 02/28/24 00:05
Total Bilirubin Cancelled 02/28/24 06:00
AST Cancelled 02/28/24 06:00
ALT Cancelled 02/28/24 06:00
Alkaline Phosphatase Cancelled 02/28/24 06:00
Most recent labs reviewed.
Micro Results:
02/27/24 14:36 Blood Culture - Preliminary
Blood/Venous No Growth in 72 hours- Final report to follow
02/27/24 09:46 Blood Culture - Preliminary
Blood/Venous No Growth in 72 hours- Final report to follow
02/27/24 10:25 Legionella Urinary Antigen - Final
Urine Negative for Legionella pneumophila Serogroup 1 antigen.
A negative result does not rule out the possiblity of
Legionella infection due to other serogroups or species of
Legionella. Clinical correlation is recommended.
Streptococcus pneumoniae Antigen (M - Final
Negative for Streptococcus pneumoniae antigen.
A negative result does not exclude infection with
Streptococcus pneumoniae. Clinical correlation is
recommended.
02/27/24 14:36 Nasal Screen MRSA (PCR) - Final
Nose MRSA not detected - performed by PCR methodology.
02/27/[address]: MODERATE ACUTE INTERSTITIAL and ALVEOLAR CARDIOGENIC PULMONARY EDEMA in the RIGHT LUNG.
2. Small right pleural effusion.
3. Small pericardial effusion.
4. Severe calcific atherosclerotic plaque in the coronary arteries and thoracic aorta.
5. Mild mediastinal and right hilar lymphadenopathy which appears new from 01/28/2020 (either reactive or metastatic in etiology).
6. PREVIOUS LEFT PNEUMONECTOMY with pleural thickening and complex pleural fluid opacifying the left hemithorax.
7. Large anterior vertebral body endplate osteophytes in the thoracic spine causing moderate compression on the posterior wall of the mid descending thoracic aorta.
[2024-03-02] MEDS: LANTUS 0.1 UNITS SC (09:53)
--- NOTE | 2024-03-02 11:01 | W.DCSUMMARY ---
Discharge Summary
Discharge Data
Date of Admission: 02/27/24
Date of Discharge: 03/02/24
-
Pending Results: No
Hospital Course
Discharge diagnosis:
Acute hypoxic respiratory failure
Acute coronavirus pneumonia
Non-ST elevation myocardial infarction status post stent placement
Flash pulmonary edema
Diabetic ketoacidosis
Type 2 diabetes
Acute toxic metabolic encephalopathy
Hyperkalemia
Sinus tachycardia
Hypotension
History of lung cancer status post left pneumonectomy
Gastroesophageal reflux disease
Hyponatremia
Consults: Pig Machine Supervisor, ID, cardiology
Procedures:
03/01/2024 cardiac catheterization with stent placement to the LAD
Chest CT:
1. MODERATE ACUTE INTERSTITIAL and ALVEOLAR CARDIOGENIC PULMONARY EDEMA in the RIGHT LUNG.
2. Small right pleural effusion.
3. Small pericardial effusion.
4. Severe calcific atherosclerotic plaque in the coronary arteries and thoracic aorta.
5. Mild mediastinal and right hilar lymphadenopathy which appears new from 01/28/2020 (either reactive or metastatic in etiology).
6. PREVIOUS LEFT PNEUMONECTOMY with pleural thickening and complex pleural fluid opacifying the left hemithorax.
7. Large anterior vertebral body endplate osteophytes in the thoracic spine causing moderate compression on the posterior wall of the mid descending thoracic aorta.
Echo:
Limited follow-up study.
Normal left ventricular size and wall thickness. Mildly reduced left
ventricular systolic function with ejection fraction 45 to 50% by visual
assessment, 48% by volumetric assessment. Hypokinesis of the mid to apical
anteroseptal and anterior wall.
Compared to previous echo from January 2024, EF was 55 to 60% and is now slightly
reduced; there are now wall motion abnormalities
Hospital course:
68-year-old male with a past medical history of lung cancer status post left pneumonectomy, CAD, HTN, HL, PVD, COPD, and DM2 was admitted for acute hypoxic respiratory failure, and diabetic ketoacidosis.
Patient was found to have acute hypoxic respiratory failure secondary to coronavirus pneumonia and flash pulmonary edema. Patient was seen in conjunction with ID. He required as much as 50 L of oxygen. He was treated with IV Lasix, IV
dexamethasone, IV remdesivir, and IV antibiotics. By the following day, his hypoxia resolved. His IV antibiotics were discontinued. He received a total of 4 doses of IV dexamethasone, and 3 doses of IV remdesivir. ID states he does not need
anymore.
Patient had diabetic ketoacidosis, was treated with an insulin drip in the ICU. His gap closed, and he was resumed on his home diabetes regimen of glimepiride, Januvia, and metformin.
Patient was also found to have non-ST elevation myocardial infarction. His troponins peaked at 20.6. Echocardiogram shows hypokinesis of the mid to apical anteroseptal and anterior wall. He was seen in conjunction with cardiology. He was treated
with IV heparin drip, aspirin, statin, metoprolol. He was continued on his home lisinopril. He underwent cardiac catheterization with stent placement to the LAD on 03/01/2024. Cardiology recommends he be discharged on aspirin and Plavix, which he
needs to continue at least for 12 months. He is to continue his statin, lisinopril, and metoprolol. Cardiology changed his metoprolol to metoprolol succinate 50 mg daily. Cardiology recommends stopping his Imdur. He has been referred for
outpatient cardiac rehab.
After several days, patient felt remarkably better. He was seen in conjunction with PT, who recommended home care. He has to hold his metformin secondary to the cardiac catheterization diet, he can resume on 03/03/2024. He needs to isolate through
03/07/2024. He needs to follow-up with his primary care doctor in 1 week, and cardiology in the office in 2-3 weeks.
Disposition: Home with home care
Discharge planning: Required 48 minutes
Discharge Plan
-
Patient Disposition: Home with Home Care
Discharge Diagnosis/Procedures: Acute hypoxic respiratory failure, coronavirus infection, non-ST elevation myocardial infarction, angioplasty with lithotripsy (shockwave) and stent to LAD x1 (02/28), weakness, confusion, type 2 diabetes with
hyperglycemia, diabetic ketoacidosis
Condition: Good
Diet: Low Cholesterol
Activity: As tolerated
Driving Restrictions: No driving for 24 hours
Bathing Restrictions: OK to Shower
Other Services: Cardiac Rehab
Specialty Instructions: Weigh Daily- Call MD for wt gain/loss 3 lbs overnight/5 lbs in 1 week
Activity Restrictions/Additional Instructions:
Continue isolating through 03/07/2024. If you are around others please wear a mask.
Follow-up with your primary care doctor in less than 1 week, and cardiology in the office as directed.
Instructions: *[facility] Heart Failure Instructions
Stand Alone Forms: DC Instructions- Cath/EP Lab
Referrals:
Jayson Ornelas DO [Active] - 03/28/24 4:20 pm
Eduardo Guzman MD [Family Provider] -
Additional Discharge Medication Instructions: -Hold Metformin post procedure, resume on Sat 8/17 am
-STOP taking Imdur ER (isosorbide mononitrate).
-STOP taking your outpatient dose of Lopressor (metoprolol tartrate), it has been replaced with Toprol XL (metoprolol succinate) 50 mg once a day
-START taking Plavix (clopidogrel) 75 mg once a day
-Continue taking aspirin 81 mg once a day
Prescriptions:
New
clopidogrel 75 mg Tablet
75 mg PO DAILY Qty: 30 11RF
metoprolol succinate 50 mg Tablet Extended Release 24 Hr
50 mg PO DAILY Qty: 30 11RF
Continued
fluvastatin [Lescol XL] 80 MG tablet extended release 24 hr
80 mg PO DAILY
aspirin 81 mg Tablet,Delayed Release (Dr/Ec)
81 mg PO QPM
lisinopril 10 mg Tablet
5 mg PO DAILY
glimepiride 4 mg Tablet
4 mg PO BID
cholecalciferol (vitamin D3) [Vitamin D3] 25 mcg (1,000 unit) Capsule
25 mcg PO QPM
Januvia 100 mg Tablet
100 mg PO DAILY
silodosin 8 mg Capsule
8 mg PO DAILY
pantoprazole [Protonix] 40 mg Tablet,Delayed Release (Dr/Ec)
40 mg PO DAILY
Held
metformin 1,000 MG tablet
1,000 mg PO BID
Hold Instructions: Resume on 03/03/24.
Discontinued
metoprolol tartrate 75 mg Tablet
75 mg PO BID
isosorbide mononitrate [Imdur] 30 mg Tablet Extended Release 24 Hr
30 mg PO DAILY
Discharge Orders:
Discharge Patient (As Directed); Ordered 03/02/24
Ordered By: Rolando Alvares
Discharge Date and Time
Discharge Date/Time: 03/02/24 11:57
Print Language: CROATIAN
--- NOTE | 2024-03-02 11:26 | CM ---
Addendum entered by Ladan Dow 03/02/24 11:37:
will provide transport home
[facility] notified of discharge via [facility] and [place] [facility]
Addendum entered by Ladan Dow 03/02/24 11:36:
Met with patient's outside of room
IMM benefit explained; form signed @ [id number]
Original Note:
CM consult completed
Plan: Discharge to home with home health services from [facility]
[2024-03-02 11:30] VITALS: BP 128/68
--- NOTE | 2024-03-02 16:00 | VNURNOTE ---
Patient d/c'ed prior to Liaison meeting them. Called and spoke with spouse over the phone. Explained [facility] nurse/therapy, visits, schedule. Spouse agreeable and understands that visits at home will be 1-3 x per week to assess and teach medical
management. Patient is aware that [facility] will contact them for start of care in a few days after discharge from . [facility] referral accepted in [facility].
== END 2024-03-02 11:57 | disposition home health service (06) | DRG 853 ==
LOC: 2 NORTH 11:42
PROVIDERS: Internal Medicine Cardiovascular Disease; Nurse Practitioner Family; Nurse Practitioner Primary Care; Physician Assistant Medical; ADMITTING PHYSICIAN Family Medicine; CONSULT PHYSICIAN Internal Medicine; CONSULT PHYSICIAN Internal Medicine Cardiovascular Disease; EMERGENCY PHYSICIAN Student in an Organized Health Care Education/Training Program; FAMILY PHYSICIAN Family Medicine; OTHER PHYSICIAN Internal Medicine Infectious Disease
PROC: 5A09357 Assistance with Respiratory Ventilation, Less than 24 Consecutive Hours, Continuous Positive Airway Pressure (ICD-10-PCS; 2024-02-27)
PROC: XW033E5 Introduction of Remdesivir Anti-infective into Peripheral Vein, Percutaneous Approach, New Technology Group 5 (ICD-10-PCS; 2024-02-27)
PROC: 027034Z Dilation of Coronary Artery, One Artery with Drug-eluting Intraluminal Device, Percutaneous Approach (ICD-10-PCS; 2024-02-29)
PROC: B2111ZZ Fluoroscopy of Multiple Coronary Arteries using Low Osmolar Contrast (ICD-10-PCS; 2024-02-29)
PROC: 4A023N7 Measurement of Cardiac Sampling and Pressure, Left Heart, Percutaneous Approach (ICD-10-PCS; 2024-02-29)
DX: A41.89 Other specified sepsis (principal); E11.10 Type 2 diabetes mellitus with ketoacidosis without coma; U07.1 COVID-19; J12.82 Pneumonia due to coronavirus disease 2019; J96.01 Acute respiratory failure with hypoxia; I21.4 Non-ST elevation (NSTEMI) myocardial infarction; I50.31 Acute diastolic (congestive) heart failure; G92.8 Other toxic encephalopathy; E87.1 Hypo-osmolality and hyponatremia; J44.0 Chronic obstructive pulmonary disease with (acute) lower respiratory infection; N40.1 Benign prostatic hyperplasia with lower urinary tract symptoms; E87.5 Hyperkalemia; R65.20 Severe sepsis without septic shock; I25.10 Atherosclerotic heart disease of native coronary artery without angina pectoris; I11.0 Hypertensive heart disease with heart failure; E78.00 Pure hypercholesterolemia, unspecified; E11.51 Type 2 diabetes mellitus with diabetic peripheral angiopathy without gangrene; K21.9 Gastro-esophageal reflux disease without esophagitis; Z79.82 Long term (current) use of aspirin; Z79.84 Long term (current) use of oral hypoglycemic drugs; Z79.899 Other long term (current) drug therapy; Z85.118 Personal history of other malignant neoplasm of bronchus and lung; Z87.891 Personal history of nicotine dependence; Z90.2 Acquired absence of lung [part of]; Z92.21 Personal history of antineoplastic chemotherapy; Z92.3 Personal history of irradiation; Z95.5 Presence of coronary angioplasty implant and graft
CPT/HCPCS: 93308; 71045; 71275; 80048; 80053; 80061; 81003; 81015; 82010; 82805; 82947; 82962; 83036; 83605; 83735; 83880; 84100; 84145; 84484; 85025; 85027; 85347; 85610; 85730; 87040; 87449; 87641; 87811; 87899; 92972; 93005; 93454; 94660; 96374; 96375; 97116; 97163; 97167; 97530; 99291; 99292; C1725; C1761; C1769; C1874; C1894; C9600; J0248; J1327; Q9967

== ENCOUNTER → 2024-05-23 08:00 | Outpatient (REF) | payer OTHER, SELFPAY | LOC: RCS 08:00 | PROVIDERS: ATTENDING PHYSICIAN Nuclear Medicine Nuclear Cardiology; FAMILY PHYSICIAN Family Medicine | DX: I25.118 Atherosclerotic heart disease of native coronary artery with other forms of angina pectoris (principal) | CPT/HCPCS: 93306 ==

== ENCOUNTER → 2024-05-28 16:07 | Outpatient (REF) | payer OTHER, SELFPAY | LOC: RCS 16:07 | PROVIDERS: ATTENDING PHYSICIAN Nuclear Medicine Nuclear Cardiology; FAMILY PHYSICIAN Family Medicine | DX: I25.118 Atherosclerotic heart disease of native coronary artery with other forms of angina pectoris (principal) | CPT/HCPCS: 93306 ==

== ENCOUNTER → 2024-08-24 14:09 | Outpatient (REF) | payer OTHER, SELFPAY | LOC: HWRAD 14:09 | PROVIDERS: ATTENDING PHYSICIAN Family Medicine | DX: I25.10 Atherosclerotic heart disease of native coronary artery without angina pectoris (principal); E11.69 Type 2 diabetes mellitus with other specified complication; E78.2 Mixed hyperlipidemia; I10 Essential (primary) hypertension; J44.9 Chronic obstructive pulmonary disease, unspecified; Z90.2 Acquired absence of lung [part of]; Z85.118 Personal history of other malignant neoplasm of bronchus and lung; R41.3 Other amnesia | CPT/HCPCS: 70450 ==